=== PATIENT | male | born 1930 | race Hispanic/Latino ===

== ENCOUNTER 2017-02-10 10:18 | Inpatient (IN) | payer MEDICARE, MEDICAID ==
--- NOTE | 2017-02-10 10:35 | ED PDOC ---
Arrival/HPI - General Chief Complaint: Shortness Of Breath Time Seen by Provider: 02/10/17 10:19 Historian: Patient, Family (2 daughters translate) EM Caveat: Acuity of Condition - History of Present Illness Time/Duration: Other (Last night) Symptom Onset: Gradual Symptom Course: Worsening Severity Level: Moderate Activities at Onset: Rest Associated Symptoms (Text): 02/10/17 10:33 Daughters translating reports shortness of breath beginning last night and worsening overnight. No chest pain. He was treated by medics with nitroglycerin and Lasix IV. There is a very mild nonproductive chronic cough. No dizziness or lightheadedness. Some diaphoresis. No nausea or vomiting. History of a CABG and pacemaker. Past Medical History - Infectious Disease Hx of Infectious Diseases: None - Cardiac Hx Cardiac Disorders: Yes (cad, open heart at [facility] 5 yrs ago) Hx Hypertension: Yes - Pulmonary Hx Chronic Obstructive Pulmonary Disease (COPD): Yes - HEENT Hx HEENT Disorder: No - Renal Hx Renal Disorder: No - Endocrine/Metabolic Hx Endocrine Disorders: (thyroid nodule removed over 15 yrs ago) - Hematological/Oncological Hx Cancer: Yes (basal cell nose removed) - Integumentary Hx Basal Cell Carcinoma: Yes (nose) Other/Comment: multiple brown discolorations to both lower legs, daughter does not know the cause was seen by dr has had them many years - Musculoskeletal/Rheumatological Hx Falls: No - Gastrointestinal Hx Gastrointestinal Disorders: No - Genitourinary/Gynecological Hx Genitourinary Disorders: No - Psychiatric Hx Depression: No Hx Emotional Abuse: No Hx Physical Abuse: No Hx Substance Use: No - Surgical History Hx Open Heart Surgery: Yes - Anesthesia Hx Anesthesia Reactions: No - Suicidal Assessment Feels Threatened In Home Enviroment: No Family/Social History - Physician Review Nursing Documentation Reviewed: Yes Family/Social History: Unknown Family HX Smoking Status: Former Smoker (Quit smoking 9 years ago) Hx Alcohol Use: Yes (social) Frequency of alcohol use: Socially Hx Substance Use: No Allergies/Home Meds Allergies/Adverse Reactions: Allergies No Known Allergies Allergy (Verified 07/24/15 21:15) Home Medications: Home Meds Medication Instructions Recorded Confirmed Fluticasone/Salmeterol [Advair 1 puff IH DAILY 07/22/12 02/10/17 Diskus 250/50] Aspirin [Aspirin EC] 325 mg PO DAILY 02/10/17 02/10/17 Levalbuterol HCl [Xopenex] 0 mg IH PRN PRN 02/10/17 02/10/17 Metoprolol Tartrate [Lopressor] 25 mg PO DAILY 02/10/17 02/10/17 Umeclidinium [place] [Incruse 0 mcg IH DAILY 02/10/17 02/10/17 Ellipta] Review of Systems - Review of Systems Systems not reviewed;Unavailable: Acuity of Condition Physical Exam Vital Signs Temp Pulse Resp BP Pulse Ox 02/10/17 10:48 100.8 F H 02/10/17 10:38 115/59 L 02/10/17 10:30 98.1 F 80 23 115/59 L 91 L 02/10/17 10:27 26 H Temperature: Afebrile Blood Pressure: Normal Pulse: Regular Respiratory Rate: Tachypneic Appearance: Positive for: Well-Appearing, Non-Toxic, Uncomfortable Pain Distress: None Mental Status: Positive for: Alert and Oriented X 3 - Systems Exam Head: Present: Atraumatic, Normocephalic Pupils: Present: PERRL Extroacular Muscles: Present: EOMI Conjunctiva: Present: Normal Mouth: Present: Moist Mucous Membranes Pharnyx: No: ERYTHEMA, EXUDATE, TONSILS ENLARGED Neck: Present: Normal Range of Motion Respiratory/Chest: Present: Respiratory Distress, Accessory Muscle Use, Decreased Breath Sounds, Rales, Retracting, Rhonchi, Tachypneic. No: Tender to Palpation Cardiovascular: Present: Regular Rate and Rhythm, Normal S1, S2. No: Murmurs Abdomen: Present: Normal Bowel Sounds. No: Tenderness, Distention, Peritoneal Signs, Rebound, Guarding Upper Extremity: Present: Normal Inspection. No: Cyanosis, Edema Lower Extremity: Present: Normal Inspection. No: Edema, Swelling Neurological: Present: GCS=15, CN II-XII Intact, Speech Normal Skin: Present: Warm, Dry, Normal Color. No: Rashes Psychiatric: Present: Alert Medical Decision Making ED Course and Treatment: 02/10/17 10:36 EKG is pacing rate approximately 65 02/10/17 10:55 is here seeing the patient now. 02/10/17 11:28 was unable to get into the patient's chart to place orders, and he asked me to daria, herlinda and césar for him which I have done. - Lab Interpretations Lab Results: 02/10/17 10:50 02/10/17 10:50 Lab Results 02/10/17 10:55: Urine Color yellow, Urine Appearance Clear, Urine pH 6.5, Ur Specific Cameron 1.015, Urine Protein Negative, Urine Glucose (UA) Negative, Urine Ketones Negative, Urine Blood Small H, Urine Nitrate Negative, Urine Bilirubin Negative, Urine Urobilinogen 1.0 H, Ur Leukocyte Esterase Negative, Urine RBC 10 - 15, Urine WBC 2 - 5, Ur Epithelial Cells 4 - 5 02/10/17 10:50: Sodium 137, Potassium 4.3, Chloride 101, Carbon Dioxide 26, Anion Gap 14, BUN 21, Creatinine 0.9, Est GFR ( Amer) > 60, Est GFR (Non- Af Amer) > 60, Random Glucose 111 H, Calcium 9.0, Total Bilirubin 2.2 H, AST 25 , ALT 22, Alkaline Phosphatase 101, Lactate Dehydrogenase 299 L, Total Creatine Kinase 42, Troponin I < 0.01 D, NT-Pro-B Natriuret Pep 4320 H, Total Protein 7.2, Albumin 3.8, Globulin 3.4, Albumin/Globulin Ratio 1.1 02/10/17 10:50: WBC 8.6 D, RBC 4.56, Hgb 15.4, Hct 45.5, MCV 99.8, MCH 33.8, MCHC 33.8, RDW 14.4, Plt Count 244, MPV 9.1, Gran % 64.5, Lymph % (Auto) 29.9, Lasalle % (Auto) 5.4, Eos % (Auto) 0.1 L, Baso % (Auto) 0.1, Gran # 5.52, Lymph # 2.6, Lasalle # 0.5, Eos # 0.0, Baso # 0.01 02/10/17 10:35: pCO2 31 L, pO2 63.0 L, HCO3 22.0, ABG pH 7.46 H, ABG Total CO2 23.0, ABG O2 Saturation 94.1 L, ABG O2 Content 18.3, ABG Base Excess -0.9, ABG Hemoglobin 14.0, ABG Carboxyhemoglobin 1.3, POC ABG HHb (Measured) 5.8 H, ABG Methemoglobin 0.1, ABG O2 Capacity 19.4, Hgb O2 Saturation 92.8 L, FiO2 40.0 - RAD Interpretation Radiology Orders: 02/10/17 10:28 CHEST PORTABLE [RAD] Stat Chest 1 view shows borderline cardiomegaly with hardware and a pacemaker present. No infiltrate. Bilateral increased markings consistent with CHF. 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: ED Physician - Medication Orders Current Medication Orders: Arformoterol Tartrate (Brovana) 15 mcg IH [id number] CHUCHO Tiotropium [place] (Spiriva) 18 mcg IH DAILY CHUCHO Discontinued Medications Budesonide (Pulmicort Respules) 0.5 mg IH STAT STA Stop: 02/10/17 11:27 Furosemide (Lasix) 40 mg IVP STAT STA Stop: 02/10/17 10:28 Last Admin: 02/10/17 10:38 Dose: 40 mg Nitroglycerin (Nitro-Bid 2% Oint) 1 ea TOP STAT STA Stop: 02/10/17 10:41 Disposition/Present on Arrival - Present on Arrival Any Indicators Present on Arrival: No History of DVT/PE: No History of Uncontrolled Diabetes: No Urinary Catheter: No History of Decub. Ulcer: No History Surgical Site Infection Following: None - Disposition Have Diagnosis and Disposition been Completed?: Yes Diagnosis: Congestive heart failure Disposition: HOSPITALIZED Disposition Time: 11:40 Patient Plan: Admission, Telemetry Condition: SERIOUS Discharge Instructions (ExitCare): Heart Failure (ED)
[2017-02-10 10:39] LABS: ARTERIAL BLOOD GAS O2 CAPACITY 19.4 mL/dl (16-24); ARTERIAL BLOOD GAS O2 CONTENT 18.3 ML/dl (15-23); ARTERIAL BLOOD GAS PH 7.46 (7.35-7.45); ARTERIAL BLOOD HGB O2 SAT 92.8 % (95.0-98.0); CARBOXYHEMOGLOBIN 1.3 % (0.5-1.5); HHB 5.8 % (0-5); METHEMOGLOBIN 0.1 % (0.0-3.0)
[2017-02-10] MEDS ORDERED: Nitroglycerin 2% Ointment Foilpak UD TOP STA (10:40)
[2017-02-10 10:51] LABS: ADD MANUAL DIFF? NO
[2017-02-10 10:55] LABS: BASO # 0.01 K/mm3 (0.0-2.0); BASO % 0.1 % (0.0-3.0); EOS % 0.1 % (1.5-5.0); GRAN # 5.52 (1.4-6.5); GRAN % 64.5 % (50.0-68.0); HEMATOCRIT 45.5 % (42.0-52.0); LYMPH # 2.6 (1.2-3.4); LYMPH % 29.9 % (22.0-35.0); MEAN CELL VOLUME 99.8 fL (80.0-105.0); MEAN CORPUSCULAR HEMOGLOBIN 33.8 pg (25.0-35.0); MEAN CORPUSCULAR HGB CONC 33.8 g/dl (31.0-37.0); MEAN PLATELET VOLUME 9.1 fl (7.0-11.0); MONO # 0.5 (0.1-0.6); MONO % 5.4 % (1.0-6.0); PLATELET COUNT 244 10^3/uL (120.0-450.0); RED CELL DISTRIBUTION WIDTH 14.4 % (11.5-14.5); WHITE BLOOD COUNT 8.6 10^3/ul (4.5-11.0)
[2017-02-10 11:01] LABS: PH,URINE 6.5 (4.7-8.0); URINE BILIRUBIN NEGATIVE (NEGATIVE); URINE BLOOD SMALL (NEGATIVE); URINE GLUCOSE (UA) NEGATIVE (NEGATIVE); URINE KETONE NEGATIVE (NEGATIVE); URINE LEUKOCYTE ESTERASE NEGATIVE Leu/uL (NEGATIVE); URINE PROTEIN NEGATIVE mg/dL (<30 mg/dL)
[2017-02-10 11:06] LABS: ALB/GLOB RATIO 1.1 (1.1-1.8); ALKALINE PHOSPHATASE 101 U/L (38-133); ALT/SGPT 22 U/L (7-56); AST/SGOT 25 U/L (15-59); BILIRUBIN,TOTAL 2.2 mg/dL (0.2-1.3); BLOOD UREA NITROGEN 21 mg/dL (7-21); CARBON DIOXIDE 26 mmol/L (21-33); CHLORIDE 101 mmol/L (98-107); GFR AFRICAN-AMERICAN > 60; GLUCOSE,RANDOM 111 mg/dL (70-110); INR 1.09 (0.93-1.08); POTASSIUM 4.3 mmol/L (3.6-5.0); SODIUM 137 mmol/L (132-148); TOTAL PROTEIN 7.2 g/dL (5.8-8.3)
[2017-02-10 11:15] LABS: URINE APPEARANCE CLEAR (CLEAR)
[2017-02-10 11:26] LABS: TROPONIN I < 0.01 ng/mL
[2017-02-10] MEDS ORDERED: Budesonide 0.5 mg/2 ml Inhal Susp UD IH STA (11:26)
--- NOTE | 2017-02-10 12:33 | RAD ---
HISTORY: Shortness of breath. COMPARISON: 09/01/2016. FINDINGS: LUNGS: Small left pleural effusion. PLEURA: No significant pleural effusion identified, no pneumothorax apparent. CARDIOVASCULAR: Cardiomegaly, mild CHF. Position/ configuration of pacemaker device: Satisfactory. OSSEOUS STRUCTURES: No significant abnormalities. VISUALIZED UPPER ABDOMEN: Normal. OTHER FINDINGS: None. IMPRESSION: Cardiomegaly/pulmonary vascular congestion, acute.
[2017-02-10 12:42] VITALS: BMI 28.3
--- NOTE | 2017-02-10 13:02 | CON ---
DATE: 02/10/2017 HISTORY OF PRESENT ILLNESS: For computer reasons, I have been unable to be entered into this patient's chart and do not have access to any of the medical records or to write orders. I have seen the patient in the Emergency Room and discussed the case with the patient's daughters. I have discussed the patient's symptoms with him privately. The patient has been my patient for many years with chronic obstructive pulmonary disease. His outpatient medications include Advair, INCRUSE and Xopenex p.r.n. as a rescue inhaler. He is on home oxygen. He also takes aspirin and metoprolol from his membership manager. Of late, the patient has progressive shortness of breath unrelated to his respiratory status. He has been referred to cardiology and an outpatient workup has been started; still pending are an echocardiogram and thallium stress test. He has not yet been treated for pulmonary vascular congestion, although the symptoms were present in my office: the reason for sending him to cardiology several weeks ago. The patient and his daughters state that during the night and starting yesterday afternoon, the patient had progressive shortness of breath. He had a gurgling sound from his mouth. This was not associated with any chest pain. There was edema of the lower extremities and the gurgling sound as described above. He was taking his medication and supplemental oxygen to no avail. The patient was just seen in the Emergency Room with one of his daughters. I have spoken to his other daughter on the telephone at this time. The patient states that his symptoms began yesterday as described above and have progressed to the point that he wanted to come to the Emergency Room for further help. The oxygen has not helped, nor the inhalation treatments and he actually suspected cardiac disease as this has been recent change in his status. There was no fever, chills, cough or expectoration. There was edema of the lower extremities and gurgling sounds from his mouth. HOME MEDICATIONS: Include Advair 250/50, INCRUSE 1 inhalation daily, Xopenex HFA 1-2 puffs up to twice daily as a rescue inhaler if needed. In addition to this, he has been taking aspirin and metoprolol daily. ALLERGIES: There are no known allergies. FAMILY HISTORY: Coronary artery disease, chronic respiratory disease, diabetes mellitus. SOCIAL HISTORY: Former smoker REVIEW OF SYSTEMS: Complete review of systems has been discussed with the patient's daughter, there are no additional abnormalities that need to be added at this time. He is resting but very uncomfortable. All other systems negative. PHYSICAL EXAMINATION: VITAL SIGNS lymph nodes are stable with a blood pressure 140/70, heart rate is 92 and blood pressure 140/92, oxygen sat 92% on supplemental oxygen. GENERAL: The patient looks like usual, but he is clearly with respiratory distress. NECK: Supple. There is no lymphadenopathy. There is minor jugular venous distention on exam. HEENT: Normocephalic, atraumatic. Eyes: PERRLA. EOMs full. HEART: Tachycardia, gallop appreciated, soft systolic ejection murmur. CHEST: Scattered rales throughout both lung bahena, prolonged expiratory phase , no wheezing appreciated. Some rhonchi noted as well. ABDOMEN: Soft, bowel sounds normoactive without mass, guarding, rebound or organomegaly. EXTREMITIES: Reveal no clubbing or cyanosis. There is 1-2+ edema of the lower extremities. There is no Homans sign. NEUROLOGIC: Awake, alert, oriented. Mental status normal, no focal findings. Deep tendon reflexes normal. Babinski is downgoing. LYMPHATICS: Lymphadenopathy is not present. Supraclavicular area as well as the cervical, axillary and supraclavicular notch appear free of lymph nodes. SKIN: No rashes LABORATORY STUDIES: Chest x-ray shows pulmonary vascular congestion with Frances B lines encephalization of the vessels, there is significant hyperinflation consistent with COPD as well and cardiomegaly. No additional testing is done as of this time. There is no EKG or blood work done. CLINICAL IMPRESSION: 1. Progressive onset of shortness of breath. 2. Development of edema and gurgling. 3. Pulmonary vascular congestion/congestive heart failure. 4. 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 PLAN: The patient will require cardiology evaluation EL. He is seen by Dr. Harrison. He needs vigorous diuretic therapy as well as afterload reduction. We would continue his inhaled bronchodilators via hand nebulizer and Spiriva hand held. We will follow closely with you. Unfortunately, I cannot make any orders for this gentleman because I cannot enter the computer. I will discuss my suggestions with the ER physician and nurse and make sure that the orders get in the computer, assuring that the membership manager see the patient EL. Will also discuss with the patient's PMD, Dr. Shiva Angulo. Lester Chávez MD cc: [id number] TT: 02/10/2017 13:00:48 Confirmation # [id number] Dictation # [id number] jn MARGARETTE
--- NOTE | 2017-02-10 18:16 | CON ---
DATE: 02/10/2017 Cardiology consultation (for Dr. Harrison). HISTORY OF PRESENT ILLNESS: The patient is an 86-year-old male who presents with 1 week of progressi ve shortness of breath. He was seen in Dr. Harrison's office earlier this month and was ordered multiple tests including an echocardiogram that was done in their office. He was scheduled for stress test b ut never did the test yet. PAST MEDICAL HISTORY: Is notable for a pacemaker placement. In addition, the patient is status post coronary artery bypass surgery. His past medical history is also notable for a stress test that showed good LV function. Negative diabetes mellitus noted. SOCIAL HISTORY: Negative smoker. REVIEW OF SYSTEMS: No angina noted. Negative edema noted. Positive shortness of breath over 1 week . PHYSICAL EXAMINATION: VITAL SIGNS: Blood pressure varies from 138-178, heart rate is in the 60s and paced rhythm. NECK: Negative JVD. LUNGS: Rales bilaterally. HEART: Revealed S1, S2. EXTREMITIES: Without edema. EKG shows a paced rhythm. LABORATORIES: Hemoglobin is 15.4. Chemistries: Troponins negative x 1. The proBNP is 4320. Gluco se 111. IMPRESSION: 1. Acute systolic congestive heart failure. 2. History of bypass surgery. 3. No evidence for acute coronary syndrome. 4. History of pacemaker placement. 5. Dyspnea, which is better after IV Lasix. Given these findings, will increase his Lasix to 40 b.i.d. Will not order an echocardiogram since one was done in Dr. Harrison's office recently. Will defer care t o Dr. Harrison in the morning. Angel Leon MD cc: [id number] TT: 02/10/2017 18:15:42 Confirmation # [id number] Dictation # [id number] dn
[2017-02-10] MEDS ORDERED: Arformoterol 15 mcg/2 ml Inh Sol IH SCH (20:00)
[2017-02-10] MEDS: Arformoterol 15 mcg/2 ml Inh Sol IH SCH (21:17)
[2017-02-11] MEDS ORDERED: Levalbuterol 0.63 MG/3 ML Inhal Soln UD IH PRN (07:11)
[2017-02-11 07:21] LABS: ADD MANUAL DIFF? NO
[2017-02-11 07:36] LABS: BASO # 0.02 K/mm3 (0.0-2.0); BASO % 0.2 % (0.0-3.0); EOS % 0.3 % (1.5-5.0); GRAN # 5.55 (1.4-6.5); GRAN % 62.1 % (50.0-68.0); HEMATOCRIT 44.5 % (42.0-52.0); LYMPH # 2.7 (1.2-3.4); LYMPH % 30.6 % (22.0-35.0); MEAN CELL VOLUME 99.1 fL (80.0-105.0); MEAN CORPUSCULAR HEMOGLOBIN 33.6 pg (25.0-35.0); MEAN CORPUSCULAR HGB CONC 33.9 g/dl (31.0-37.0); MEAN PLATELET VOLUME 9.1 fl (7.0-11.0); MONO # 0.6 (0.1-0.6); MONO % 6.8 % (1.0-6.0); PLATELET COUNT 229 10^3/uL (120.0-450.0); RED CELL DISTRIBUTION WIDTH 14.3 % (11.5-14.5)
[2017-02-11 07:44] LABS: ALB/GLOB RATIO 1.2 (1.1-1.8); ALKALINE PHOSPHATASE 101 U/L (38-133); ALT/SGPT 35 U/L (7-56); AST/SGOT 27 U/L (15-59); BILIRUBIN,TOTAL 2.6 mg/dL (0.2-1.3); BLOOD UREA NITROGEN 30 mg/dL (7-21); CALCIUM 8.8 mg/dL (8.4-10.5); CARBON DIOXIDE 29 mmol/L (21-33); CHLORIDE 97 mmol/L (95-110); GFR AFRICAN-AMERICAN > 60; GLUCOSE,RANDOM 116 mg/dL (70-110); POTASSIUM 3.9 mmol/L (3.6-5.0); SODIUM 135 mmol/L (132-148); TOTAL PROTEIN 7.5 g/dL (5.8-8.3)
[2017-02-11] MEDS: Arformoterol 15 mcg/2 ml Inh Sol IH SCH ×2 (08:54→19:15)
[2017-02-11] MEDS: Levalbuterol 0.63 MG/3 ML Inhal Soln UD IH SCH ×3 (08:54→19:15)
[2017-02-11] MEDS: Budesonide 0.5 mg/2 ml Inhal Susp UD IH SCH ×2 (08:54→19:15)
--- NOTE | 2017-02-11 09:16 | CARD ---
APPROVED REPORT EKG Measurement Heart [id number] VT P55 [id number] <Conclusion> Electronic ventricular pacemaker: 100% V. Paced No change
[2017-02-11] MEDS: Enoxaparin 40 mg Syringe SC SCH (09:49)
[2017-02-11] MEDS: Tiotropium 18 mcg Cap For Inhalation IH SCH (09:49)
--- NOTE | 2017-02-11 10:25 | PN ---
DATE: 02/11/2017 SUBJECTIVE: The patient appears comfortable at rest. He is not short of breath. PHYSICAL EXAMINATION: VITAL SIGNS: Temperature is 98.3, pulse 60, respirations 18, blood pressure 114 /56. Oxygen saturation on nasal cannula is 94%. HEENT: Normocephalic, atraumatic. No JVD. CARDIOVASCULAR: Systolic ejection murmur at the lower left sternal border. Positive S3 gallop. LUNGS: Crackles at the bases. Minimal bilateral rhonchi. No wheezing. EXTREMITIES: Mild edema. No cyanosis. No clubbing. Calves are nontender to palpation. GASTROINTESTINAL: Abdomen is soft, nontender, nondistended. Bowel sounds are positive. SKIN: No acute rash. NEUROLOGIC: Limited at the present time. IMPRESSION: 1. Acute congestive heart failure. 2. Coronary artery disease. 3. Chronic obstructive pulmonary disease. 4. Mild bronchitis. 5. Permanent pacemaker. PLAN: The patient appears comfortable this morning. He is not short of breath at rest. I did discuss the case with the daughter -- at bedside -- at length. She states that her father -- the patient -- is doing better since his admission to the hospital. On physical exam, there is mild bronchospasm noted. I will continue with the Brovana for now. I will also add a short acting beta agonist and inhaled Pulmicort this morning. The patient is also on Spiriva. I would continue with the treatment for congestive heart failure as per cardiology. Input by Dr. Leon is noted. The patient remains on Lasix/ afterload reduction. I have also ordered the patient out of bed this morning with assistance. Repeat a.m. labs are pending. Clinical status of the patient is improved -- compared to the initial presentation. I will discuss the above with the attending physician this morning. Riley Fu MD cc: [id number] TT: 02/11/2017 10:24:49 Confirmation # [id number] Dictation # [id number] en MTDD
--- NOTE | 2017-02-11 13:04 | HP ---
HISTORY OF PRESENT ILLNESS: The patient is an 86-year-old man with a past medical history of COPD, h ypertension and CAD status post CABG who presented to [facility] Emergency Department wit h progressively worsening dyspnea, initially with exertion, which progressed to dyspnea at rest. The patient is closely followed by Dr. Chávez of pulmonary and critical care medicine for his underl melissa COPD and was recently referred to Dr. Harrison of cardiology for continued workup of his exertional dyspnea, given that the etiology was not felt to be secondary to his underlying COPD. The patient di d have an evaluation with Dr. Harrison and underwent an echocardiogram, and arrangements were made [facility] a nuclear stress test; however, this was yet to be completed. Given the progression of the patient's symptoms, his daughter has opted for evaluation in the Emergency Department. This morning he reported that for approximately 1-2 weeks he has been experiencing dyspnea with exertion, which h as been progressing over time to the point where he was dyspneic at rest. He denied chest pain or pa lpitations associated with his symptoms and furthermore denied any fevers, chills, cough, hemoptysis or lower extremity edema. He did, however, report, 2 pillow orthopnea which he states is new. Upon arrival to the Emergency Department, he was noted to be afebrile and hemodynamically stable, but tach ypneic with a respiratory rate of 26 and hypoxic with an oxygen saturation of 90% on room air. The p atient received multiple rounds of bronchodilator treatments and was placed on supplemental oxygen wi th minimal improvement in his symptoms. A chest x-ray which was obtained in the Emergency Department demonstrated cardiomegaly with pulmonary vascular congestion in a CHF pattern and, thus, the patient was started on intravenous Lasix and subsequently admitted to the telemetry gallardo for continued manag ement of acute systolic heart failure exacerbation. This morning on examination, the patient states he feels significantly improved since admission and reports frequent urination, and otherwise offers no complaints. PAST MEDICAL HISTORY: As per HPI. Also, history of benign thyroid nodule, status post removal 15 ye ars ago and removal of basal cell carcinoma from the nose. PAST SURGICAL HISTORY: As per HPI. ALLERGIES: No known drug allergies. MEDICATIONS: Advair 250/50 one puff b.i.d., Incruse 1 inhalation daily, Xopenex HFA 1-2 puffs b.i.d. , aspirin 81 mg p.o. daily and metoprolol 25 mg p.o. daily. FAMILY HISTORY: Significant for COPD, CAD, hypertension and type 2 diabetes mellitus. SOCIAL HISTORY: The patient reports a former [id number] smoking history, but quit several years ag o. He reports social alcohol use and denies illicit drug abuse. REVIEW OF SYSTEMS: Significant for exertional dyspnea, dyspnea at rest and 2 pillow orthopnea. Nega tive for fevers, chills, rigors, palpitations, chest pain, paroxysmal nocturnal dyspnea or claudicati on. PHYSICAL EXAMINATION: VITAL SIGNS: Temperature 98.3, pulse 60, blood pressure 114/56, respiratory rate 18, oxygen saturati on 94% on 2 liters nasal cannula. GENERAL: Elderly man appearing his stated age, in no apparent distress. HEENT: Normocephalic, atraumatic. PERRL, EOMI, no scleral icterus, no conjunctival pallor. NECK: Supple with full range of motion. No JVD, no bruits. LUNGS: A few scattered rhonchi with decreased breath sounds to the bases. CARDIOVASCULAR: Regular rate and rhythm. Normal S1 and S2. Grade II/ systolic ejection murmur to left lower sternal border. ABDOMEN: Soft, normoactive bowel sounds, nondistended, nontender. EXTREMITIES: Trace lower extremity edema bilaterally. NEUROLOGIC: Awake, alert and oriented x 3. No focal motor deficits. LABORATORY DATA: WBC 9 with 62% neutrophils, hemoglobin 15, hematocrit 44, platelets 229. Sodium 13 5, potassium 3.9, chloride 97, bicarb 29, BUN 30, creatinine 1.1, glucose 116. AST 27, ALT 35. Trop onin negative x 2. BNP 4320. IMAGING STUDIES: Chest x-ray demonstrates cardiomegaly with pulmonary vascular congestion in a CHF p attern and satisfactory position of pacemaker. ASSESSMENT: The patient is an 86-year-old male with a past medical history of chronic obstructive pu lmonary disease/emphysema, hypertension and coronary artery disease status post coronary artery bypas s graft, who presented to the Emergency Department with a 1-week history of progressively worsening d yspnea, 2 pillow orthopnea, and lower extremity edema and who was admitted to the telemetry gallardo for management of acute systolic heart failure exacerbation. PLAN: 1. Acute systolic heart failure exacerbation. Input from Dr. Leon of cardiology noted and appreciat ed. Dr. Harrison of cardiology will resume care starting today. The patient remains afebrile, hemodynam ically stable and chest pain free and cardiac enzymes are negative x 2. The patient is also diuresed satisfactorily since admission with approximately 1.9 liters of urine output with significant improv ement in his respiratory status. Will continue with Lasix 40 mg IV q. 12 hours at present, but will need to monitor his renal function and electrolytes closely for concern for over diuresis. 2. CAD, status post CABG. As above, evaluation is pending with Dr. Harrison. The patient was scheduled to undergo a nuclear stress test on an outpatient basis and will need to discuss the timing of this exam given his recent admission. Continue with Coreg 12.5 mg p.o. b.i.d. and aspirin 81 mg p.o. mehrdad y. 3. Hypertension. Blood pressure controlled. Continue with current medications. 4. COPD/emphysema. Input from Dr. Chávez noted and greatly appreciated. Continue with suppleme ntal oxygen, bronchodilators and inhaled corticosteroids as needed. 5. Prophylaxis. GI prophylaxis not indicated as patient is eating. Continue with Lovenox 40 mg SC daily for DVT prophylaxis. CODE STATUS: Full code. Shiva Angulo MD cc: [phone] TT: 02/11/2017 13:03:29 ga
--- NOTE | 2017-02-11 14:26 | IP.NPCORE ---
Heart Failure Core Measure - Heart Failure Ejection Fraction: 40 % or Greater ASHLIE Inhibitor Prescribed: Yes Beta-Emerson Prescribed: Carvedilol, Metoprolol Succinate AnticoagulationTherapy for Atrial Fibrillation/Atrialflutter: No Contraindication/Reason for not providing: n/a Aldosterone Antagonist Prescribed: No Contraindication/Reason for not providing: renal insuff, on lasix Hydralazine Nitrate Prescribed: No Contraindication/Reason for not providing: ef >40% last echo Implantable Cardioverter Defibrillator Therapy: Yes Cardiac Resynchronization Therapy Prescribed: Yes - Follow up Will be discharged to: Home Follow Up Date (must be within 7 days from discharge): 02/18/17 (recommended at mo) Follow Up Time: 09:00
[2017-02-12] MEDS ORDERED: Levalbuterol 1.25 MG/3 ML Inhal Soln UD IH STA (00:21)
[2017-02-12 06:25] LABS: ADD MANUAL DIFF? NO
[2017-02-12 06:31] LABS: BASO # 0.01 K/mm3 (0.0-2.0); BASO % 0.1 % (0.0-3.0); EOS % 0.4 % (1.5-5.0); GRAN # 4.85 (1.4-6.5); GRAN % 60.2 % (50.0-68.0); HEMATOCRIT 41.8 % (42.0-52.0); LYMPH # 2.6 (1.2-3.4); LYMPH % 32.3 % (22.0-35.0); MEAN CELL VOLUME 98.1 fL (80.0-105.0); MEAN CORPUSCULAR HEMOGLOBIN 33.6 pg (25.0-35.0); MEAN CORPUSCULAR HGB CONC 34.2 g/dl (31.0-37.0); MEAN PLATELET VOLUME 8.9 fl (7.0-11.0); MONO # 0.6 (0.1-0.6); PLATELET COUNT 215 10^3/uL (120.0-450.0); RED CELL DISTRIBUTION WIDTH 14.2 % (11.5-14.5); WHITE BLOOD COUNT 8.1 10^3/ul (4.5-11.0)
[2017-02-12 06:52] LABS: ALB/GLOB RATIO 1.1 (1.1-1.8); ALKALINE PHOSPHATASE 98 U/L (38-133); ALT/SGPT 21 U/L (7-56); AST/SGOT 27 U/L (15-59); BILIRUBIN,TOTAL 1.8 mg/dL (0.2-1.3); BLOOD UREA NITROGEN 40 mg/dL (7-21); CALCIUM 8.6 mg/dL (8.4-10.5); CARBON DIOXIDE 30 mmol/L (21-33); CHLORIDE 94 mmol/L (98-107); GFR AFRICAN-AMERICAN > 60; GLUCOSE,RANDOM 108 mg/dL (70-110); POTASSIUM 3.6 mmol/L (3.6-5.0); SODIUM 133 mmol/L (132-148); TOTAL PROTEIN 7.1 g/dL (5.8-8.3)
[2017-02-12 07:04] VITALS: O2SAT 90
--- NOTE | 2017-02-12 08:09 | PN ---
DATE: 02/11/2017 REASON FOR CONSULTATION AND FOLLOWUP: Coronary artery disease, CABG, admitted with acute decompensat ed congestive heart failure, acute on chronic systolic dysfunction. BRIEF CLINICAL HISTORY: This is an 86-year-old male with a past medical history significant for omaira nary artery disease, status post CABG 08/2008 when the patient had a cardiac catheterization because of abnormal stress test that shows left main 80%-90% stenosis, LAD 30%, circumflex 90% stenosis, unde rwent cardiac catheterization, underwent CABG. The patient was recently seen in office, was stable. Admitted here with shortness of breath, history of severe PAD in the past. PAST MEDICAL HISTORY: Significant for coronary artery disease, CABG 2007 as mentioned. The patient underwent quadruple bypass. Since then, remained stable. The patient's last stress test 12/22/2014 s hows ejection fraction 59%, fixed defect, no reversible ischemia. The patient had last echocardiogra phy done in the hospital 07/25/2015, shows ejection fraction 55%-60%, mild aortic stenosis, mild aort ic sclerosis versus aortic stenosis, trace to mild mitral regurgitation, mild regurgitation. R ecently, patient was seen in office complaining of shortness of breath, so patient was scheduled for echo that shows ejection fraction 30%-35%, mild aortic stenosis, mild tricuspid regurgitation, RV sys tolic pressure 38, inferior apical hypokinesis noted. The patient was scheduled for a stress test in end of January, but admitted here yesterday with decompensated congestive heart failure. History of pe rmanent pacemaker when patient presented with a complete heart block dated 07/27/2015. SOCIAL HISTORY: Denies smoking. Denies any history of alcohol abuse. REVIEW OF SYSTEMS: As per HPI. PHYSICAL EXAMINATION: VITAL SIGNS: Temperature afebrile, heart rate , blood pressure 101/51. HEENT: PERRLA. Extraocular muscles intact. NECK: Supple. No carotid bruits. No thyromegaly. CHEST: Clear to auscultation. HEART: S1, S2 regular. ABDOMEN: Soft. EXTREMITIES: Clubbing, cyanosis negative. BLOOD WORKUP: WBC 9, hemoglobin 15. , hematocrit 44.5, platelet count 229. Chemistry shows sodi um , potassium 3.9, chloride 97, carbon dioxide , anion gap of 13, BUN 30, creatinine 1.1. Troponin 0.01. IMPRESSION: Decompensated congestive heart failure, acute on chronic systolic dysfunction, most rece ntly echo shows ejection fraction 35% on last in Dr. Chaidez's office, mild aortic , mil d tricuspid regurgitation, right ventricular systolic pressure 38, coronary artery disease, coronary artery bypass graft in the past, quadruple bypass 2007, history of 08/2008, history of permanent pace maker on 07/27/2015 when patient admitted with a complete heart block, history of peripheral arterial disease, seen by Dr. Paulino and decided to be treated medically. Decompensated congestive heart f ailure, acute on chronic systolic dysfunction, diabetes, hypertension, hyperlipidemia, severe periphe ral arterial disease, coronary artery bypass graft. RECOMMENDATION: Continue IV Lasix. Continue aspirin, continue Coreg, continue deep venous thrombosi s prophylaxis. Will get a stress test in the morning. Thank you, Dr. Shiva Angulo, for providing us the opportunity in taking care of the patient. The patient had a recent echo done in Dr. Chaidez's office. We will cancel the stress test. Thank you, Dr. Shiva Angulo, for providing us the opportunity in taking care of the patient. We will do a stress test tomorrow. Keep n.p.o. after midnight for a stress in the morning. Vasu Harrison MD cc: [id number] TT: 02/11/2017 16:57:22 Confirmation # [id number] Dictation # [id number] en
[2017-02-12] MEDS: Arformoterol 15 mcg/2 ml Inh Sol IH SCH ×2 (09:06→19:47)
[2017-02-12] MEDS: Levalbuterol 0.63 MG/3 ML Inhal Soln UD IH SCH ×3 (09:07→19:47)
[2017-02-12] MEDS: Budesonide 0.5 mg/2 ml Inhal Susp UD IH SCH ×2 (09:07→19:47)
--- NOTE | 2017-02-12 09:45 | PN ---
DATE: 02/12/2017 PULMONARY NOTE SUBJECTIVE: The patient appears very comfortable this morning. He is not short of breath at rest. PHYSICAL EXAMINATION: VITAL SIGNS: Temperature is 98.4, pulse 60, respirations 18, blood pressure 108 /58. Oxygen saturation on nasal cannula is 92%. HEENT: Normocephalic, atraumatic. No JVD. CARDIOVASCULAR: Systolic ejection murmur at the lower left sternal border. Positive S3 gallop. LUNGS: Crackles at the bases. Much less rhonchi. No wheezing. EXTREMITIES: Mild edema. No cyanosis, no clubbing. Calves are nontender to palpation. GASTROINTESTINAL: Abdomen is soft, nontender, nondistended. Bowel sounds are positive. SKIN: No acute rash. NEUROLOGIC: Limited at the present time. IMPRESSION: 1. Acute congestive heart failure. 2. Coronary artery disease. 3. Chronic obstructive pulmonary disease. 4. Mild bronchitis. 5. Permanent pacemaker. PLAN: The patient appears very comfortable this morning. He is not short of breath at rest. I did discuss the case with the daughter at length. She is at bedside. She also feels that his shortness of breath is resolving. On physical exam, there is certainly less bronchospasm noted. I will continue with the current nebulizer treatments and inhaled steroids for now. I would continue with the cardiology evaluation. Input by Dr. Leon is noted. The patient is for stress testing later today. Clinical status of the patient is certainly improved - compared to the initial presentation. Repeat chest x-ray is ordered for today. I will check that when feasible. I will discuss the above with the attending physician. Riley Fu MD cc: [id number] TT: 02/12/2017 09:44:30 Confirmation # [id number] Dictation # [id number] jn MARGARETTE
[2017-02-12] MEDS ORDERED: Aminophylline 25 mg/ml Inj ONE (10:16)
--- NOTE | 2017-02-12 10:41 | PN ---
DATE: 02/12/2017 SUBJECTIVE: The patient seen and examined at bedside on the telemetry gallardo. No acute events overnig ht. He remains afebrile and hemodynamically stable. The patient reports significant continued impro vement in his respiratory status and also reports significant diuresis since admission. He is down 1 1 pounds since admission and has voided over 2 L of urine in the last 24 hours. This morning, the darren arevalo has a nuclear stress test pending as ongoing workup of his exertional dyspnea. Otherwise, he s tates he feels well and offers no complaints. OBJECTIVE: VITAL SIGNS: Temperature 97.9, pulse 61, blood pressure 117/63, respiratory rate 18, oxygen saturati on 94% on 2 L nasal cannula. GENERAL: Elderly man appearing his stated age, lying in bed in no apparent distress. HEENT: PERRL. EOMI. No scleral icterus. No conjunctival pallor. NECK: Supple with full range of motion, no JVD, no bruits. LUNGS: Faint scattered rhonchi with few expiratory wheeze and decreased breath sounds to the bases. CARDIOVASCULAR: Regular rate and rhythm, normal S1 and S2, grade II/ systolic ejection murmur at t he left lower sternal border. ABDOMEN: Normoactive bowel sounds, soft, nontender, nondistended. EXTREMITIES: No edema. NEUROLOGIC: Awake, alert and oriented x 3. No focal motor deficits. LABORATORY DATA: CBC reviewed and unremarkable. Sodium 133, potassium 3.6, chloride 94, bicarb 30, BUN 40, creatinine 1, glucose 108. ASSESSMENT: The patient is an 86-year-old man with past medical history of chronic obstructive pulmo nary disease/emphysema, hypertension and coronary artery disease, status post coronary artery bypass graft, who presented to the Emergency Department with a 1-week history of progressively worsening dys pnea, 2 pillow orthopnea, and lower extremity edema and who was admitted to the telemetry gallardo for wa jenniffer of acute systolic heart failure exacerbation, who is now clinically improved. PLAN: 1. Acute systolic heart failure exacerbation, resolved. Input from Dr. Harrison of cardiology noted and greatly appreciated. The patient has lost 11 pounds since admission and has diuresed a further 2 L in the last 24 hours. Given increasing renal dysfunction, we will lower Lasix to 40 mg IV daily. Co ntinue with supplemental oxygen as needed. 2. CAD, status post CABG. The patient is pending nuclear stress test with Dr. Harrison this morning. C ontinue with aspirin 81 mg p.o. daily and Coreg 12.5 mg p.o. b.i.d. 3. Hypertension. Blood pressure controlled. Continue with current medications. 4. COPD/emphysema. Input from Dr. Fu noted and appreciated. Continue with current therapy as per Dr. Fu. 5. Prophylaxis. GI prophylaxis not indicated as the patient is eating. Continue with Lovenox 40 mg SC daily for DVT prophylaxis. CODE STATUS: Full code. Shiva Angulo MD cc: [id number] TT: 02/12/2017 10:40:17 Confirmation # [id number] Dictation # [id number] il
--- NOTE | 2017-02-12 11:14 | PN ---
DATE: 02/12/2017 REASON FOR CONSULTATION: Coronary artery disease, CABG, admitted with acute decompensated congestive heart failure, acute on chronic systolic dysfunction. BRIEF CLINICAL HISTORY: An 86-year-old male with past medical history significant for coronary arter y disease, status post coronary artery bypass graft in 08/2008, recently seen in the office, history of PAD, family opted for medical treatment, admitted with acute decompensated congestive heart failur e. The patient had recently an echo in Dr. Chaidez's office, ejection fraction 30%-35%, mild aortic s tenosis, mild tricuspid regurgitation, right ventricular systolic pressure 78, inferior apical hypoki nesis noted. The patient is scheduled for a stress test as outpatient, but because of symptomology, is scheduled for a stress test today. Family is at the bedside. History of permanent pacemaker when patient was in complete heart block 07/27/2015. PHYSICAL EXAMINATION: VITAL SIGNS: Temperature afebrile, heart rate 61, blood pressure 117/63. HEENT: PERRLA. Extraocular muscles intact. NECK: Supple. No carotid bruits. No thyromegaly. No JVD. CHEST: Clear to auscultation. HEART: S1, S2 regular. ABDOMEN: Soft. EXTREMITIES: Clubbing and cyanosis negative. LABORATORY DATA: Blood workup as follows: WBC ____, hemoglobin ____, hematocrit 41.8, platelet coun t 215. Chemistry shows sodium ____, potassium 3.6, chloride 94, carbon dioxide 30, anion gap of 13, BUN 40, creatinine 1.0. Total bilirubin 1.8. IMPRESSION: Acute decompensated congestive heart failure. No evidence of acute coronary syndrome. Troponin remained 0.1, 0.2, 0.2. No evidence of acute coronary syndrome. Unstable angina. No evide nce of acute coronary syndrome or unstable angina. Diabetes, hyperlipidemia, coronary artery disease , coronary artery bypass graft, cardiomyopathy, acute on chronic systolic dysfunction, rule out ische juan jose, rule out occlusion of the graft, history of sick sinus syndrome, status post complete heart bloc k, status post permanent pacemaker, history of peripheral arterial disease, family opted for medical treatment. RECOMMENDATION: We will get a stress test today. After stress test, possible discharge home, but wi ll change Lasix to p.o. from tomorrow. Discussed with the daughter. Discussed with Dr. Shiva vargas. I am going on conference tomorrow ____ patient will be followed with Dr. Mai if needed, otherwise the patient will be discharged and follow the stress test as outpatient. Discussed with ___ _. Thank you, Dr. Angulo, for providing the opportunity in taking care of this patient. Vasu Harrison MD cc: [id number] TT: 02/12/2017 11:13:09 Confirmation # [id number] Dictation # [id number] rn
[2017-02-12] MEDS: Tiotropium 18 mcg Cap For Inhalation IH SCH (12:12)
[2017-02-12] MEDS: Enoxaparin 40 mg Syringe SC SCH (12:14)
--- NOTE | 2017-02-12 14:11 | CARD ---
APPROVED REPORT Protocol: LEXISCAN Test Type: Lexiscan Sestamibi Stress Test Attending Physician: Dr. Shiva Angulo Referring Physician: Dr. Vasu Harrison Test Indications: Chest Pain Height:5 ft 2 in Weight:148lbs Medications: Brovana, Aspirin, Pulmicort, Coreg, Lovenox, Lasix, Xopenex, Spiriva Medical History: 86 y/o male with a history of htn, diabetes, COPD, CHF, s/p CABG and pacemaker insertion Target HR: 133 bpm Resting ECG: V paced rythm Resting Heart Rate: 63 bpm Resting Blood Pressure: 136/70mmHg Submaximum (85%): 113 bpm PROCEDURE Pharmacologic stress testing was performed using 0.4mg per 5ml of regadenoson given intravenously over 7-10 seconds. Reversal agent aminophyline 100 mg, given intravenously for Dyspnea. POST EXERCISE Reason for Termination: Protocol completed Target HR: No Max HR: 62 bpm 52% of Maximum Predicted HR: 133 bpm Exercise duration: 00:36 min:sec, 0 Stage Exercise capacity: 1.0METs Max Blood Pressure: 136/70mmHg Blood Pressure response to exercise: normal resting BP - appropriate response Heart Rate response to exercise: appropriate Chest Pain: No, none Angina index: 0 Arrhythmia: No, none ST Change: Yes, Non from base line Deviation: 0 mm TEST SUMMARY [id number]/.0. [id number]/70.0. INFUSIONDOSE 100:360.00.01.062/.0. [id number]/60.0. INTERPRETATION Stress EKG Conclusion: Non diagnostic IV lexiscan for ischemia B/c of V paced rythm, Nuclear scan to follow. Signed by Shiva Angulo Electronically Approved: 02/12/2017 11:33:38 EXAM: Myocardial Perfusion REST/STRESS Stress Test Type: Pharmacologic Imaging Protocol Rest Spect myocardial perfusion imaging was performed in supine position 45 minutes following the injection of 10.3 mCi of Tc-99 Myoview. At peak stress, the patient was injected intravenously with 30.7mCi of Tc-99 tetrofosmin after an infusion time of 0 minutes and 10 seconds. Gated Stress Spect was performed 65 minutes after intravenous Tc-99 Myoview injection. The images were gated to evaluate regional wall motion and calculate ventricular ejection fraction.Images were reconstructed using backfilter projection method in short horizontal and verticle long axis. Spect slices were generated. LV Perfusion The quality of the study is good. The left ventricle is within normal limits in size. The right ventricle is prominent. The lung uptake is borderline increased. The distribution of tracer reveal an area of severely decreased perfusion involving apical, distal inferior/ inferoseptal maravilla on the stress study. The remainder of the LV myocardium is unremarkable. The rest myocardial perfusion study shows no significant improvement of the defects. Wall Motion Wall motion study shows anteroseptal dyskinesis of the left ventricle. LVEF = 59%. Conclusion 1. Abnormal SPECT myocardial perfusion study. 2. Fixed, apical and distal inferior/ inferoseptal defects are suggestive of myocardial injury/infarct. 3. Moderate overall LV dysfunction despite anteroseptal dyskinesis. 4. In comparison with the last study of 12/22/2014, the perfusion defects appear more prominent in the current study.
--- NOTE | 2017-02-12 14:31 | RAD ---
HISTORY: F/U CHF COMPARISON: 09/01/2016. TECHNIQUE: Chest PA and lateral FINDINGS: LUNGS: The lungs are hyperinflated and there is peribronchial thickening with chronic changes in both lungs. There is mild pulmonary venous congestion. There is linear atelectasis/ scarring in the left lower lobe. No lobar pneumonia. PLEURA: No significant pleural effusion identified. No pneumothorax apparent. CARDIOVASCULAR: The heart is normal in size. Status post CABG. There is stable position of a left-sided unipolar permanent pacing device. OSSEOUS STRUCTURES: No significant abnormalities. VISUALIZED UPPER ABDOMEN: Normal. OTHER FINDINGS: None. IMPRESSION: Mild pulmonary venous congestion. COPD.
--- NOTE | 2017-02-12 22:38 | CARD ---
APPROVED REPORT EKG Measurement Heart [id number] <Conclusion> Electronic ventricular pacemaker
[2017-02-13] MEDS: Levalbuterol 0.63 MG/3 ML Inhal Soln UD IH SCH ×2 (02:28→07:59)
[2017-02-13 04:49] VITALS: RESP 22; TEMP 98.5
[2017-02-13 07:40] LABS: ADD MANUAL DIFF? NO
[2017-02-13 07:47] LABS: BASO # 0.01 K/mm3 (0.0-2.0); BASO % 0.1 % (0.0-3.0); GRAN # 5.58 (1.4-6.5); GRAN % 66.1 % (50.0-68.0); HEMATOCRIT 42.1 % (42.0-52.0); LYMPH # 2.2 (1.2-3.4); LYMPH % 25.5 % (22.0-35.0); MEAN CELL VOLUME 97.2 fL (80.0-105.0); MEAN CORPUSCULAR HEMOGLOBIN 33.5 pg (25.0-35.0); MEAN CORPUSCULAR HGB CONC 34.4 g/dl (31.0-37.0); MEAN PLATELET VOLUME 9.2 fl (7.0-11.0); MONO # 0.7 (0.1-0.6); MONO % 8.3 % (1.0-6.0); PLATELET COUNT 245 10^3/uL (120.0-450.0); RED CELL DISTRIBUTION WIDTH 13.8 % (11.5-14.5); WHITE BLOOD COUNT 8.4 10^3/ul (4.5-11.0)
[2017-02-13 07:57] LABS: ALB/GLOB RATIO 1.1 (1.1-1.8); ALKALINE PHOSPHATASE 109 U/L (38-133); ALT/SGPT 22 U/L (7-56); AST/SGOT 28 U/L (15-59); BILIRUBIN,TOTAL 2.2 mg/dL (0.2-1.3); BLOOD UREA NITROGEN 49 mg/dL (7-21); CALCIUM 8.5 mg/dL (8.4-10.5); CARBON DIOXIDE 31 mmol/L (21-33); CHLORIDE 91 mmol/L (95-110); GFR AFRICAN-AMERICAN > 60; GLUCOSE,RANDOM 118 mg/dL (70-110); POTASSIUM 3.7 mmol/L (3.6-5.0); SODIUM 129 mmol/L (132-148); TOTAL PROTEIN 7.1 g/dL (5.8-8.3)
[2017-02-13] MEDS: Arformoterol 15 mcg/2 ml Inh Sol IH SCH (07:58)
[2017-02-13] MEDS: Budesonide 0.5 mg/2 ml Inhal Susp UD IH SCH (07:59)
--- NOTE | 2017-02-13 08:13 | PN ---
DATE: 02/13/2017 SUBJECTIVE: The patient appears comfortable this morning. He is not short of breath at rest. OBJECTIVE: VITAL SIGNS: Temperature is 98.5, pulse 60, respirations 18/20, blood pressure 138/69. Oxygen saturation on nasal cannula is 90%. HEENT: Normocephalic, atraumatic. No JVD. CARDIOVASCULAR: Systolic ejection murmur at the lower left sternal border. Positive S3 gallop. LUNGS: Less crackles at the bases. Minimal/less rhonchi. No wheezing. EXTREMITIES: Mild edema. No cyanosis, no clubbing. Calves are nontender to palpation. GASTROINTESTINAL: Abdomen is soft, nontender, nondistended. Bowel sounds are positive. SKIN: No acute rash. NEUROLOGIC: Limited at the present time. PERTINENT LABORATORY DATA: Chest x-ray was done yesterday and reviewed. Compared to the film of 02/10/2017 - yesterday's film is improved with decreased pulmonary vascular congestive changes. IMPRESSION: 1. Acute congestive heart failure. 2. Coronary artery disease. 3. Chronic obstructive pulmonary disease. 4. Mild bronchitis. 5. Permanent pacemaker. PLAN: The patient appears comfortable this morning. He is not short of breath at rest. He does state to feeling better overall. I did discuss the case with the daughter - at bedside - again this morning. On physical exam, his bronchospasm is certainly less. I will continue with the current nebulizer treatments and inhaled steroids for now. The patient also remains on Lasix therapy - as per Dr. Harrison (cardiology). As above, yesterday's x-ray is certainly improved - compared to the original film. The patient is doing well overall and remains clinically improved. I will discuss the above with Dr. Angulo. Riley Fu MD cc: [id number] TT: 02/13/2017 08:12:29 Confirmation # [id number] Dictation # [id number] mn MARGARETTE
--- NOTE | 2017-02-13 08:38 | PN ---
DATE: 02/13/2017 SUBJECTIVE: The patient seen and examined at bedside on the telemetry gallardo. No acute events overnight. He remains afebrile and hemodynamically stable. The patient is status post a nuclear stress test yesterday which demonstrated multiple abnormalities as compared to his previous study and arrangements will be made for further evaluation with cardiac catheterization. Otherwise he states he feels great and denies chest pain, palpitations, orthopnea or dyspnea and reports that he would like to go home. OBJECTIVE: VITAL SIGNS: Temperature 98.5, pulse 60, blood pressure 138/69, respiratory rate 22, oxygen saturation 90% on 3 liters nasal cannula. GENERAL: Elderly man appearing his stated age, in no apparent distress. HEENT: PERRL. EOMI. No scleral icterus. No conjunctival pallor. NECK: Supple, with full range of motion. No JVD, no bruits. LUNGS: Bibasilar crackles with few scattered rhonchi. CARDIOVASCULAR: Regular rate and rhythm, normal S1, S2. Grade II/ systolic ejection murmur at left lower sternal border. ABDOMEN: Normoactive bowel sounds, soft, nontender, nondistended. EXTREMITIES: No edema. NEUROLOGIC: Awake, alert and oriented x 3. No focal motor deficits. LABORATORY DATA: CBC reviewed and unremarkable. Sodium 129, potassium 3.7, chloride 91, bicarb 31, BUN 49, creatinine 1.2, glucose 118. ASSESSMENT: The patient is an 86-year-old man with past medical history of chronic obstructive pulmonary disease/emphysema, hypertension and coronary artery disease s/p CABG who presents to [facility] with a 1-week history of progressively worsening dyspnea, 2-pillow orthopnea and lower extremity edema and who was admitted to the telemetry gallardo for management of acute systolic heart failure exacerbation. PLAN: 1. Acute systolic heart failure exacerbation, resolved. Input from Dr. Harrison of cardiology noted and greatly appreciated. The patient is diuresed satisfactorily since admission. Intravenous Lasix has been discontinued and the patient has been started on Lasix 40 mg p.o. b.i.d. 2. Coronary artery disease, status post coronary artery bypass graft. The patient is status post nuclear stress test which demonstrated fixed apical and distal inferior/inferoseptal defect suggestive of myocardial injury, which are more prominent than his previous study in 12/2014. As above, arrangements will be made for further evaluation with cardiac catheterization. In the interim, the patient will continue with aspirin 81 mg p.o. daily and Lopressor 25 mg p.o. b.i.d. 3. Hypertension. Blood pressure controlled. Continue with current medications. 4. Chronic obstructive pulmonary disease/emphysema. Input from Dr. Fu noted and appreciated. Continue with current care as per Dr. Fu. 5. Prophylaxis. GI prophylaxis not indicated as the patient is eating. Continue with Lovenox 40 mg SC daily for DVT prophylaxis. CODE STATUS: Full code. Shiva Angulo MD cc: [id number] TT: 02/13/2017 08:38:12 Confirmation # [id number] Dictation # [id number] mn MTDD
[2017-02-13] MEDS: Tiotropium 18 mcg Cap For Inhalation IH SCH (09:32)
[2017-02-13] MEDS: Enoxaparin 40 mg Syringe SC SCH (09:32)
[2017-02-13 09:34] VITALS: BP 115/68; PULSE 64
--- NOTE | 2017-02-14 21:34 | DS ---
ADMITTING DIAGNOSIS: Acute systolic heart failure exacerbation, new onset. DISCHARGE DIAGNOSIS: Acute systolic heart failure exacerbation. SECONDARY DIAGNOSES: Chronic obstructive pulmonary disease/emphysema, coronary artery disease status post coronary artery bypass graft, hypertension. CONSULTATIONS: Dr. Harrison (cardiology), Dr. Chávez (pulmonary and critical care medicine). IMAGING STUDIES: Chest x-ray, which demonstrated cardiomegaly with pulmonary venous congestion in a CHF pattern. PROCEDURES: Myocardial nuclear stress test which demonstrated an abnormal fixed apical and distal in ferior/anteroseptal defect suggestive of myocardial injury with moderate LV dysfunction with an EF of 59%, which in comparison to the last study in 12/2014 the defects appear more prominent. HISTORY OF PRESENT ILLNESS: The patient is an 86-year-old male with past medical history of chronic obstructive pulmonary disease, hypertension, and CAD status post coronary artery bypass graft, who pr esented to [facility] Emergency Department with progressively worsening dyspnea, initiall y with exertion which progressed to dyspnea at rest. The patient was closely followed by Dr. Mehran velez of pulmonary and critical care medicine for his underlying COPD and was recently referred to Dr. Harrison of cardiology for continued workup of his exertional dyspnea. The etiology was not felt to be s econdary to his underlying COPD. The patient did have an evaluation with Dr. Harrison and underwent an e chocardiogram and arrangements were subsequently made to schedule for nuclear stress test which was y et to be completed. Given the progression of his symptoms, his daughter opted for evaluation in the Emergency Department. On the morning of presentation to the Emergency Department, he reported a 1-2 week history of increasing dyspnea with exertion, which progressed over time to dyspnea at rest. He denied chest pain or palpitations associated with his symptoms and further denied fevers, chills, rig ors, cough, hemoptysis or lower extremity edema. Upon arrival to the ED, he was noted to be afebrile and hemodynamically stable, but tachypneic with a respiratory rate of 26 and hypoxic with an oxygen saturation of 90% on room air. He received multiple rounds of bronchodilator treatments. He was wisam carmen on supplemental oxygen with minimal improvement in his respiratory status. He was subsequently s tarted on IV Lasix after a chest x-ray demonstrated acute pulmonary venous congestion in a CHF patter n and admitted to the telemetry gallardo for continued management of acute systolic heart failure exacerb ation. HOSPITAL COURSE: Upon admission to the telemetry gallardo, the patient was evaluated by Dr. Kyler javier f pulmonary and critical care medicine and Dr. Harrison of cardiology. The patient was maintained on his pulmonary regimen and also started on Lasix 40 mg IV q. 12 for diuresis. Over the following 36 hour s, the patient diuresed satisfactorily and was noted to have an 11 pound weight loss since admission. His pulmonary symptoms significantly improved. He was also taken to the nuclear lab to undergo a m yocardial perfusion study, which demonstrated the aforementioned abnormalities. Given the progressio n of his underlying cardiac disease as compared to his prior study, [facility] further evaluation of his new onset heart failure as well as ongoing dyspnea with exertion. By hospital day #3, the patient appeared to be at his baseline respiratory status an d was deemed stable for discharge to home. CONDITION: Fair, improved. DISPOSITION: To home. DISCHARGE MEDICATIONS: Lasix 40 mg p.o. b.i.d., Advair 250/50 one puff q. 12 hours, INCRUSE Ellipta 1 puff b.i.d., Xopenex 1 puff q. 6 hours p.r.n. wheeze, aspirin 81 mg p.o. daily and Lopressor 25 mg p.o. b.i.d. DISCHARGE INSTRUCTIONS: The patient was advised that if he has any recurrence of his symptoms to pre sent to the nearest Emergency Department or to his PMD immediately. FOLLOWUP: The patient to follow up with his PMD within 1 week of discharge. The patient to follow u p with Dr. Chávez as scheduled. The patient to follow up with Dr. Harrison as scheduled. Shiva Angulo MD cc: [phone] TT: 02/14/2017 21:33:45 jn
== END 2017-02-13 10:23 | disposition home or self-care (01) | DRG 293 ==
LOC: ED 10:18 → ERH 11:56 → 2RSO 13:16
PROVIDERS: ADMIT Student in an Organized Health Care Education/Training Program; ATTEND Student in an Organized Health Care Education/Training Program
DX: I11.0 Hypertensive heart disease with heart failure (principal); Z99.81 Dependence on supplemental oxygen; I42.9 Cardiomyopathy, unspecified; I50.23 Acute on chronic systolic (congestive) heart failure; J44.9 Chronic obstructive pulmonary disease, unspecified; E11.9 Type 2 diabetes mellitus without complications; I25.110 Atherosclerotic heart disease of native coronary artery with unstable angina pectoris; E78.5 Hyperlipidemia, unspecified; I73.9 Peripheral vascular disease, unspecified; R09.02 Hypoxemia; I08.3 Combined rheumatic disorders of mitral, aortic and tricuspid valves; Z79.51 Long term (current) use of inhaled steroids; Z79.82 Long term (current) use of aspirin; Z79.899 Other long term (current) drug therapy; Z82.49 Family history of ischemic heart disease and other diseases of the circulatory system; Z82.5 Family history of asthma and other chronic lower respiratory diseases; Z83.3 Family history of diabetes mellitus; Z85.828 Personal history of other malignant neoplasm of skin; Z87.891 Personal history of nicotine dependence; Z95.0 Presence of cardiac pacemaker; Z95.1 Presence of aortocoronary bypass graft; R40.2412 Glasgow coma scale score 13-15, at arrival to emergency department

== ENCOUNTER 2017-02-14 20:55 | Inpatient (IN) | payer MEDICARE, MEDICAID ==
[2017-02-14 20:57] VITALS: BMI 24.6
[2017-02-14] MEDS ORDERED: Levalbuterol 1.25 MG/3 ML Inhal Soln UD IH STA ×2 (21:14→21:15)
[2017-02-14] MEDS ORDERED: Ipratropium 0.02% Inhal Soln (0.5 mg/2.5 ml) UD IH STA (21:14)
--- NOTE | 2017-02-14 21:22 | ED PDOC ---
Arrival/HPI - General Chief Complaint: Chest Pain Time Seen by Provider: 02/14/17 20:57 Historian: Patient - History of Present Illness Narrative History of Present Illness (Text): 02/14/17 21:00 Bharagv Harman is an 86 year old male, whose past medical history includes CAD/CABG with a pacemaker and COPD, who has recently been hospitalized and discharged for shortness of breath. Patient had a stress test done on 02/12 which was abnormal and suggestive of ischemia, patient is awaiting appointment of outpatient cardiac catheterization. Patient presents to the emergency department with recurrence of shortness of breath, chest pain, a mild cough, and dyspnea on exertion today. Per family, patient felt warm at home and oral temp was 99.1. Patient's family states that patient is maintained on oxygen via nasal cannula at home and takes Lasix twice a day. Patient denies any fever , abdominal pain, nausea, vomiting, diarrhea, leg swelling, or any other complaint at this time. PMD: Dr. Gem Haque Time/Duration: 1-3 hours Symptom Onset: Gradual Symptom Course: Unchanged Severity Level: Mild Activities at Onset: Rest Context: Home Past Medical History - Provider Review Nursing Documentation Reviewed: Yes - Infectious Disease Hx of Infectious Diseases: None - Cardiac Hx Cardiac Disorders: Yes (cad, open heart at [facility] 5 yrs ago) Hx Hypertension: Yes - Pulmonary Hx Chronic Obstructive Pulmonary Disease (COPD): Yes - HEENT Hx HEENT Disorder: No - Renal Hx Renal Disorder: No - Endocrine/Metabolic Hx Endocrine Disorders: (thyroid nodule removed over 15 yrs ago) - Hematological/Oncological Hx Cancer: Yes (basal cell nose removed) - Integumentary Hx Basal Cell Carcinoma: Yes (nose) Other/Comment: multiple brown discolorations to both lower legs, daughter does not know the cause was seen by dr has had them many years - Musculoskeletal/Rheumatological Hx Falls: No - Gastrointestinal Hx Gastrointestinal Disorders: No - Genitourinary/Gynecological Hx Genitourinary Disorders: No - Psychiatric Hx Depression: No Hx Emotional Abuse: No Hx Physical Abuse: No Hx Substance Use: No - Surgical History Hx Open Heart Surgery: Yes - Anesthesia Hx Anesthesia Reactions: No - Suicidal Assessment Feels Threatened In Home Enviroment: No Family/Social History - Physician Review Nursing Documentation Reviewed: Yes Family/Social History: No Known Family HX Smoking Status: Never Smoked Hx Alcohol Use: Yes (social) Hx Substance Use: No Allergies/Home Meds Allergies/Adverse Reactions: Allergies No Known Allergies Allergy (Verified 07/24/15 21:15) Home Medications: Home Meds Medication Instructions Recorded Confirmed Fluticasone/Salmeterol [Advair 1 puff IH DAILY 07/22/12 02/10/17 250-50 Diskus] Aspirin [Aspirin EC] 325 mg PO DAILY 02/10/17 02/10/17 Levalbuterol HCl [Xopenex] 0 mg IH PRN PRN 02/10/17 02/10/17 Metoprolol Tartrate [Lopressor] 25 mg PO DAILY 02/10/17 02/10/17 Umeclidinium [place] [Incruse 0 mcg IH DAILY 02/10/17 02/10/17 Ellipta] Furosemide [Lasix] 40 mg PO BID 02/13/17 02/13/17 Review of Systems - Physician Review All systems were reviewed & negative as marked: Yes - Review of Systems Constitutional: absent: Fevers, Night Sweats Eyes: absent: Vision Changes ENT: absent: Hearing Changes Respiratory: SOB, Cough Cardiovascular: Chest Pain Gastrointestinal: absent: Abdominal Pain Genitourinary Male: absent: Dysuria, Urinary Output Changes Musculoskeletal: absent: Arthralgias, Neck Pain Skin: absent: Rash Neurological: absent: Headache, Dizziness Endocrine: absent: Diaphoresis Hemo/Lymphatic: absent: Adenopathy Psychiatric: absent: Anxiety Physical Exam Vital Signs Reviewed: Yes Vital Signs Temp Pulse Resp BP Pulse Ox 02/14/17 23:10 100.0 F H 72 30 H 123/71 88 L 02/14/17 21:52 114/53 L 02/14/17 21:09 98.2 F 67 28 H 149/73 87 L Temperature: Afebrile Blood Pressure: Normal Pulse: Regular Respiratory Rate: Tachypneic Appearance: Positive for: Well-Appearing, Non-Toxic, Comfortable Pain Distress: None Mental Status: Positive for: Alert and Oriented X 3 - Systems Exam Head: Present: Atraumatic, Normocephalic Pupils: Present: PERRL Conjunctiva: Present: Normal Mouth: Present: Moist Mucous Membranes Pharnyx: Present: Normal. No: ERYTHEMA, EXUDATE Neck: Present: Normal Range of Motion. No: JVD Respiratory/Chest: Present: Decreased Breath Sounds (with fine crackles at the bases), Tachypneic, Other (Positive Orthopnea) Cardiovascular: Present: Regular Rate and Rhythm, Murmurs, Normal S1, S2 Abdomen: Present: Normal Bowel Sounds. No: Tenderness, Distention, Peritoneal Signs Upper Extremity: Present: Normal Inspection. No: Cyanosis, Edema Lower Extremity: Present: Normal Inspection. No: Edema Neurological: Present: GCS=15, CN II-XII Intact, Speech Normal Skin: Present: Warm, Dry, Normal Color. No: Rashes Psychiatric: Present: Alert, Oriented x 3, Normal Insight, Normal Concentration Medical Decision Making ED Course and Treatment: 02/14/17 21:00 Impression: 86 year old male complaining of shortness of breath, chest pain, a mild cough, and dyspnea on exertion today. Differential Diagnosis included but are not limited to: ACS vs. CHF vs. COPD vs. pneumonia Plan: -- EKG -- Chest x-ray -- Urinalysis -- Labs -- Aspirin, Lasix, Atrovent, Xopenex, and Solu-medrol -- Reassess and disposition Prior Visits: Notes and results from previous visits were reviewed. Patient last seen in the ED on 02/10/17 for worsening shortness of breath since the night before arrival. Patient was admitted to Telemetry for further evaluation. Progress Notes: 02/14/17 21:27 Reviewed radiology, Chest X-ray shows bilateral pulmonary vascular congestion. 02/15/17 00:53 Patient's CXR showing PVC with likely LLL infiltrate developing. Temp is 100.0 rectally. Labs with no leukocytosis but mild neutrophilia. Patient is hypoxic on 3L NC and will definitely need admission for nebs, iv antibiotics, and steroids. Will need re-evaluation by pulmonary and cardiology. Case discussed with Dr. Shiva Angulo for admission to his service. - Lab Interpretations Lab Results: 02/14/17 21:45 02/14/17 21:45 Lab Results 02/14/17 22:00: NT-Pro-B Natriuret Pep 5770 H 02/14/17 21:45: Sodium 129 L, Potassium 4.4, Chloride 89 L, Carbon Dioxide 31, Anion Gap 13, BUN 60 H, Creatinine 1.1, Est GFR ( Amer) > 60, Est GFR ( Non-Af Amer) > 60, Random Glucose 147 H, Calcium 8.8, Magnesium 2.1, Total Bilirubin 1.6 H, AST 43, ALT 20, Alkaline Phosphatase 144 H, Lactate Dehydrogenase 400, Total Creatine Kinase 87, Troponin I 0.03 D, Total Protein 7.8, Albumin 3.9, Globulin 3.8, Albumin/Globulin Ratio 1.0 L, Lipase 27 02/14/17 21:45: PT 12.0 H, INR 1.11 H, APTT 30.1 02/14/17 21:45: WBC 9.5, RBC 4.44, Hgb 15.0, Hct 43.2, MCV 97.3, MCH 33.8, MCHC 34.7, RDW 13.8, Plt Count 313, MPV 9.7, Gran % 73.0 H, Lymph % (Auto) 17.1 L, Ross % (Auto) 9.8 H, Eos % (Auto) 0.0 L, Baso % (Auto) 0.1, Gran # 6.90 H, Lymph # 1.6, Ross # 0.9 H, Eos # 0.0, Baso # 0.01 02/14/17 21:30: Urine Color Yellow, Urine Appearance Clear, Urine pH 6.0, Ur Specific [place] 1.015, Urine Protein Negative, Urine Glucose (UA) Negative, Urine Ketones Negative, Urine Blood Trace-intact H, Urine Nitrate Negative, Urine Bilirubin Negative, Urine Urobilinogen 2.0 H, Ur Leukocyte Esterase Negative, Urine RBC 0 - 2, Urine WBC 2 - 5, Ur Epithelial Cells 1 - 3, Urine Bacteria Mod I have reviewed the lab results: Yes - RAD Interpretation Radiology Orders: 02/14/17 21:13 CHEST PORTABLE [RAD] Stat - Medication Orders Current Medication Orders: Vancomycin HCl (Vancomycin 1gm) 1 gm in 250 mls @ 133.333 mls/hr IVPB STAT STA PRN Reason: Protocol Stop: 02/15/17 01:21 Discontinued Medications Aspirin (Aspirin Chewable) 324 mg PO STAT STA Stop: 02/14/17 21:16 Last Admin: 02/14/17 21:53 Dose: Furosemide (Lasix) 40 mg IVP STAT STA Stop: 02/14/17 21:15 Last Admin: 02/14/17 21:52 Dose: 40 mg Cefepime HCl (Maxipime 1gm) 1 gm in 100 mls @ 100 mls/hr IVPB STAT STA PRN Reason: Protocol Stop: 02/15/17 00:31 Last Admin: 02/15/17 00:09 Dose: 100 mls/hr Ipratropium [place] (Atrovent) 0.5 mg IH STAT STA Stop: 02/14/17 21:15 Last Admin: 02/14/17 21:52 Dose: 0.5 mg Levalbuterol HCl (Xopenex) 1.25 mg IH STAT STA Stop: 02/14/17 21:15 Last Admin: 02/14/17 21:52 Dose: 1.25 mg Levalbuterol HCl (Xopenex) 1.25 mg IH STAT STA Stop: 02/14/17 21:16 Last Admin: 02/14/17 21:52 Dose: 1.25 mg Methylprednisolone (Solu-Medrol) 125 mg IVP STAT STA Stop: 02/14/17 21:15 Last Admin: 02/14/17 21:52 Dose: 125 mg - Scribe Statement The provider has reviewed the documentation as recorded by the Jaelyn Hale Provider Scribe Attestation: All medical record entries made by the Jaelyn were at my direction and personally dictated by me. I have reviewed the chart and agree that the record accurately reflects my personal performance of the history, physical exam, medical decision making, and the department course for this patient. I have also personally directed, reviewed, and agree with the discharge instructions and disposition. Disposition/Present on Arrival - Present on Arrival Any Indicators Present on Arrival: No History of DVT/PE: No History of Uncontrolled Diabetes: No Urinary Catheter: No History of Decub. Ulcer: No History Surgical Site Infection Following: None - Disposition Have Diagnosis and Disposition been Completed?: Yes Diagnosis: Chest pain, Pneumonia, Congestive heart failure Disposition: HOSPITALIZED Disposition Time: 23:15 Patient Plan: Admission, Telemetry Condition: FAIR
[2017-02-14 21:54] LABS: ADD MANUAL DIFF? NO
[2017-02-14 21:59] LABS: BASO # 0.01 K/mm3 (0.0-2.0); BASO % 0.1 % (0.0-3.0); HEMATOCRIT 43.2 % (42.0-52.0); LYMPH # 1.6 (1.2-3.4); LYMPH % 17.1 % (22.0-35.0); MEAN CELL VOLUME 97.3 fL (80.0-105.0); MEAN CORPUSCULAR HEMOGLOBIN 33.8 pg (25.0-35.0); MEAN CORPUSCULAR HGB CONC 34.7 g/dl (31.0-37.0); MEAN PLATELET VOLUME 9.7 fl (7.0-11.0); MONO # 0.9 (0.1-0.6); MONO % 9.8 % (1.0-6.0); PLATELET COUNT 313 10^3/uL (120.0-450.0); RED CELL DISTRIBUTION WIDTH 13.8 % (11.5-14.5); WHITE BLOOD COUNT 9.5 10^3/ul (4.5-11.0)
[2017-02-14 22:09] LABS: ALKALINE PHOSPHATASE 144 U/L (38-133); ALT/SGPT 20 U/L (7-56); AST/SGOT 43 U/L (15-59); BILIRUBIN,TOTAL 1.6 mg/dL (0.2-1.3); BLOOD UREA NITROGEN 60 mg/dL (7-21); CALCIUM 8.8 mg/dL (8.4-10.5); CARBON DIOXIDE 31 mmol/L (21-33); CHLORIDE 89 mmol/L (98-107); GFR AFRICAN-AMERICAN > 60; GLUCOSE,RANDOM 147 mg/dL (70-110); LIPASE 27 U/L (23-300); MAGNESIUM 2.1 mg/dL (1.7-2.2); POTASSIUM 4.4 mmol/L (3.6-5.0); SODIUM 129 mmol/L (132-148); TOTAL PROTEIN 7.8 g/dL (5.8-8.3)
[2017-02-14 22:10] LABS: INR 1.11 (0.93-1.08); PARTIAL THROMBOPLASTIN TIME 30.1 Seconds (23.7-30.8)
[2017-02-14 22:12] LABS: URINE BILIRUBIN NEGATIVE (NEGATIVE); URINE BLOOD TRACE-INTACT (NEGATIVE); URINE GLUCOSE (UA) NEGATIVE (NEGATIVE); URINE KETONE NEGATIVE (NEGATIVE); URINE LEUKOCYTE ESTERASE NEGATIVE Leu/uL (NEGATIVE); URINE PROTEIN NEGATIVE mg/dL (<30 mg/dL)
[2017-02-14 22:18] LABS: URINE APPEARANCE CLEAR (CLEAR); URINE COLOR YELLOW (YELLOW)
[2017-02-14 22:20] LABS: TROPONIN I 0.03 ng/mL
[2017-02-14 22:30] LABS: URINE BACTERIA MOD (NEG); URINE RBC 0 - 2 /hpf (0-2)
[2017-02-14] MEDS ORDERED: Vancomycin 1gm in NS 250ml 1 GM/250 ML BAG IVPB STA (23:29)
[2017-02-14] MEDS ORDERED: Cefepime 1gm in NS 100ml 1 GM/100 ML BAG IVPB STA (23:32)
[2017-02-15 01:55] LABS: ARTERIAL BLOOD GAS HCO3 30.6 mmol/L (21-28); ARTERIAL BLOOD GAS PH 7.47 (7.35-7.45)
[2017-02-15] MEDS ORDERED: Levalbuterol 0.63 MG/3 ML Inhal Soln UD IH PRN (06:50)
[2017-02-15] MEDS: Budesonide 0.5 mg/2 ml Inhal Susp UD IH SCH ×2 (07:47→20:20)
[2017-02-15] MEDS: Levalbuterol 0.63 MG/3 ML Inhal Soln UD IH SCH ×3 (07:47→20:20)
[2017-02-15 07:57] LABS: TROPONIN I 0.01 ng/mL
--- NOTE | 2017-02-15 08:52 | CON ---
DATE: 02/15/2017 REASON FOR CONSULTATION: Shortness of breath. REFERRING PHYSICIAN: Dr. Shiva Angulo. History is obtained via extensive discussion with the night nurse. I have also discussed the case with the son-in-law -- at bedside -- at length. I have also reviewed the chart at length. HISTORY OF PRESENT ILLNESS: The patient is an 86-year-old male, with past medical history significant for recent congestive heart failure, coronary artery disease, status post coronary bypass graft surgery, permanent pacemaker, recent abnormal stress test, chronic obstructive pulmonary disease, who presents back to the hospital with shortness of breath at rest, dyspnea on exertion, and cough. There is no history of sputum production. There is a history of chest pain yesterday. There is no chest pain today. No history of coughing up of blood. No history of chest pain -- made worse with deep respirations. I also reviewed the Emergency Room notes. In Dr. Curran's note, he states that there was a temperature of 100.0 rectally. This finding is not documented in the vital signs. No history of chills or infectious exposure. No history of night sweats, weight loss or appetite change prior to the above events. No history of leg or calf pains. No history of syncope or diaphoresis. No history of recent travel or trauma. REVIEW OF SYSTEMS: No history of nausea, vomiting or diarrhea. No acute urinary symptoms. No new neurological or musculoskeletal complaints. Rest of review of systems is negative. ALLERGIES: PENICILLIN. SOCIAL HISTORY: Positive for tobacco, negative for alcohol. FAMILY HISTORY: No inheritable diseases. HOME MEDICATIONS: Include Lopressor, Xopenex, Lasix, Advair, aspirin. PHYSICAL EXAMINATION: GENERAL: The patient appears comfortable this morning. He is not short of breath at rest. VITAL SIGNS: Temperature is 97.8, pulse 60, respirations 18/20, blood pressure 108/53. Oxygen saturation on nasal cannula is 92%. HEENT: Normocephalic, atraumatic. NECK: No JVD. CARDIOVASCULAR: Systolic ejection murmur at the lower left sternal border. Positive S3 gallop. LUNGS: Crackles at both bases. Minimal bilateral rhonchi. No wheezing. EXTREMITIES: Mild edema. No cyanosis, no clubbing. Calves are nontender to palpation. GASTROINTESTINAL: Abdomen is soft, nontender, nondistended. Bowel sounds are positive. SKIN: No acute rash. NEUROLOGIC: Limited at the present time. PERTINENT LABORATORY DATA: Chest x-ray was done yesterday and reviewed. There is a definite increase in the pulmonary vascular congestive changes -- consistent with recurrent congestive heart failure. The patient also had a myocardial stress test on 02/12/2017. The stress test shows worsening perfusion defects compared to the previous study. There is also a moderate overall decrease in the left ventricular function. CBC: White count 9.5, hemoglobin 15.0, hematocrit 43.2, platelets of 313. Complete metabolic profile : Sodium 129, chloride 89. BUN 60, glucose 147, bilirubin 1.6, alkaline phosphatase 144, B-type natriuretic peptide 5770, troponin 0.03. Rest of the metabolic profile is within normal limits. IMPRESSION: 1. Recurrent congestive heart failure. 2. Chest discomfort -- rule out cardiac ischemia. 3. History of coronary artery disease, recent abnormal stress test. 4. Chronic obstructive pulmonary disease. 5. Mild bronchitis. 6. Permanent pacemaker. PLAN: Again, I did discuss the case with the nurse and son-in-law at length. The patient was just recently discharged home after an admission for acute congestive heart failure. At home, he experienced shortness of breath at rest, dyspnea on exertion and cough. In addition, he also experienced chest discomfort. The chest discomfort is not present today at the time of my examination. Pertinent to note is the recent abnormal stress test. I would certainly get Dr. Harrison reconsulted on this case for additional management. On physical exam, there is only mild bronchospasm noted. I will start Xopenex nebulizer treatments and inhaled steroids for now. The patient's oxygen saturation is actually improved -- from the previous admission. Lastly, there is a questionable history of temperatures. Again, these temperatures are not documented in the vital signs. Dr. Walter has been called on the case. I will order a stat procalcitonin level to be done -- to try and discern whether there is an underlying pneumonia. I did review the chest x-ray as above. Compared to the previous film, there is a definite increase in the pulmonary vascular congestive changes -- most consistent with recurrent congestive heart failure. The patient was given a stat dose of Lasix yesterday. He does feel better this morning. Additional pulmonary intervention will be based on the clinical status of the patient, as well as the above results The patient's overall status/prognosis remains very guarded. I will discuss the above with Dr. Angulo this morning. Riley Fu MD cc: [id number] TT: 02/15/2017 08:52:27 Confirmation # [id number] Dictation # [id number] mn MARGARETTE
--- NOTE | 2017-02-15 09:40 | RAD ---
HISTORY: sob, cp COMPARISON: 02/12/2017 FINDINGS: LUNGS: No change in minimal interstitial densities PLEURA: No significant pleural effusion identified, no pneumothorax apparent. CARDIOVASCULAR: Normal. OSSEOUS STRUCTURES: Sternal wires VISUALIZED UPPER ABDOMEN: Normal. OTHER FINDINGS: Single lead pacemaker IMPRESSION: No active disease.
[2017-02-15 09:47] LABS: BLOOD UREA NITROGEN 51 mg/dL (7-21); CALCIUM 8.5 mg/dL (8.4-10.5); CARBON DIOXIDE 31 mmol/L (21-33); CHLORIDE 93 mmol/L (98-107); GFR AFRICAN-AMERICAN > 60; GLUCOSE,RANDOM 173 mg/dL (70-110); POTASSIUM 3.7 mmol/L (3.6-5.0); SODIUM 135 mmol/L (132-148)
--- NOTE | 2017-02-15 10:52 | CON ---
DATE: 02/15/2017 SERVICE: Cardiology. REASON FOR CONSULTATION: Shortness of breath, chest pain, decompensated congestive heart failure, el evated BNP. BRIEF CLINICAL HISTORY: This is an 86-year-old male with past medical history significant for rivera ry artery disease, CABG, recently discharged on , came back after 24 hours of being discharged wi th complaint of shortness of breath and left-sided upper chest pain. The patient had coronary artery disease, CABG 08/2008 when the patient had abnormal stress test and underwent cardiac catheterizatio n ____ shows left main 80%-90% stenosis, LAD 30%, circumflex 90% stenosis. The patient subsequently underwent a 3-vessel CABG in 08/2008, MOCTEZUMA to LAD, SVG to RCA and SVG to OM1, recently admitted with decompensated congestive heart failure, underwent a stress test that shows abnormal fixed defect. Th e patient came in yesterday again with shortness of breath and elevated BNP and chest pain. PAST MEDICAL HISTORY: Significant for coronary artery disease, CABG as mentioned in 08/2008, history of COPD, history of permanent pacemaker. The patient presented with complete heart block on 015. Previous cardiac workup as follows: The patient had most recently a stress test done on 02/12/2017 t hat shows moderate LV dysfunction, ejection fraction reported at 59%. In comparison to the last stud y, 12/20/2014, the perfusion defect appeared more prominent current study, abnormal fixed defect, abn ormal Persantine thallium. The patient had an echo most recently, ejection fraction 30%-35%, mild ao rtic stenosis, mild tricuspid regurgitation, ____ systolic pressure 38, inferior hypokinesis. The darren arevalo had coronary artery bypass surgery, CABG, 08/2008, 3-vessel CABG, MOCTEZUMA to LAD, saphenous venous graft ____ saphenous graft to obtuse marginal 1. SOCIAL HISTORY: Denies smoking. Denies any history of alcohol abuse. CURRENT MEDICATIONS: The patient at home was taking metoprolol, Xopenex, Lasix, Advair, aspirin. ALLERGIES: PENICILLIN. REVIEW OF SYSTEMS: As per HPI. PHYSICAL EXAMINATION: VITAL SIGNS: Temperature afebrile, heart rate ____, blood pressure 180/____. HEENT: PERRLA. Extraocular muscles intact. NECK: Supple. No carotid bruits. No thyromegaly. CHEST: Clear to auscultation. HEART: S1, S2 regular. ABDOMEN: Soft. EXTREMITIES: Clubbing, cyanosis negative. LABORATORY DATA: Blood workup as follows: WBC ____, hemoglobin 15, hematocrit 43.2, platelet count 313. Chemistry shows sodium ____, potassium 4.4, chloride ____, carbon dioxide ____, anion gap of 13 , BUN 60, creatinine 1.1. Troponin 0.01 negative. IMPRESSION: Recurrent chest pain, shortness of breath, acute exacerbation of chronic obstructive pul monary disease, decompensated congestive heart failure, acute on chronic systolic dysfunction, abnorm al stress test, history of coronary artery disease, coronary artery bypass graft 08/2008, left manager intern al mammary artery to left anterior descending, saphenous graft to right coronary artery, saphenous gr aft to obtuse marginal 1, history of peripheral arterial disease. Family opted for medical treatment . Recent echo shows ejection fraction 30%-35%, mild aortic ____, mild tricuspid regurgitation, right ventricular systolic pressure 35 ____ hypokinesis, history of permanent pacemaker 07/27/2015, patien t admitted with complete heart block, history of ____ seen by Dr. Paulino, decided to be treated med [facility]. RECOMMENDATION: We will load with Plavix and aspirin. Continue Coreg, continue diuretics. Will sche dule a cardiac catheterization, left and right heart. Further ____ after cardiac catheterization. I n the interim, continue to load with Plavix. Continue aspirin, continue Lasix. We will follow with you. Thank you, Dr. Angulo, for providing the opportunity in taking care of this patient. Vasu Harrison MD cc: [id number] TT: 02/15/2017 10:51:23 Confirmation # [id number] Dictation # [id number] ceasar
--- NOTE | 2017-02-15 11:50 | HP ---
The patient is on telemetry. HISTORY OF PRESENT ILLNESS: He is an 86-year-old male with a past medical history significant for co ngestive heart failure, coronary artery disease, permanent pacemaker, status post coronary bypass gra ft, chronic obstructive pulmonary disease, who presents back to the hospital with progressing shortne ss of breath, dyspnea on exertion, cough and now currently shortness of breath at rest. He did have some chest pain on the day prior to admission. Currently, he is asymptomatic. REVIEW OF SYSTEMS: Entirely unremarkable. DRUG ALLERGIES: PENICILLIN. SOCIAL HISTORY: The patient is a former smoker who does not use alcohol. PHYSICAL EXAMINATION: CURRENT VITAL SIGNS: Temperature of 97.8, pulse rate of 61, blood pressure 108/53, respiratory rate of 20 with an O2 saturation of 92% on a nasal cannula. HEENT: ARNULFO, EOMI. There is no icterus present. NECK: Supple with a full range of motion and no JVD is present. LUNGS: With diminished breath sounds with no wheezes or rales. HEART: With a regular rate and rhythm. ABDOMEN: Benign. EXTREMITIES: Show trace edema. NEUROLOGIC: There are no focal motor deficits. LABORATORY VALUES: WBC of 9.5, hemoglobin and hematocrit of 15.0 and 43.2. There are 73% granulocyt es. Coagulation is essentially normal. Chemistry shows a sodium of 129, chloride of 89, BUN of 60, creatinine of 1.1, random glucose which is nonfasting of 147. BNP of 5770. PROBLEM LIST: Currently recurrent congestive heart failure, pneumonia and chest pain. Dr. Fu is seeing the patient. He will be cathed today at approximately 3:00 in the afternoon. Alessandro Angulo MD cc: [id number] TT: 02/15/2017 11:50:22 tn
[2017-02-15] MEDS ORDERED: Lidocaine 2% Inj (20ml) ONE ×2 (14:52→15:28)
[2017-02-15] MEDS ORDERED: Iohexol 350 MG/100 ML VIAL ONE (14:53)
[2017-02-15] MEDS ORDERED: Midazolam 2 MG/2 ML VIAL ONE (15:05)
[2017-02-15] MEDS ORDERED: Sodium Chloride 0.9% 1,000 ML IV SCH (16:30)
--- NOTE | 2017-02-15 17:21 | CP.PCM.CON ---
History of Present Illness - History of Present Illness History of Present Illness: 86 year old male with PMH of CAD S/P CABG, chronic CHF, S/P pacemaker placement , COPD was brought in to [facility] because of dyspnea on exertion, shortness of breath fort the past 2-3 days. He was just recently admitted for the same symptoms and a stress was done which showed possible myocardial ischemia and patient was to be scheduled for cardiac catheterization. The patient low grade temperatures in the ED but not outright fever. The patient denies chills, no headache or dizziness, no nausea or vomiting, no dysuria, no diarrhea, no abdominal pain. In the ED, CXR showed minimal interstitial densities. Infectious Diseases consult is requested to further evaluate and manage. Review of Systems - Review of Systems All systems: reviewed and no additional remarkable complaints except (as per HPI ) Past Patient History - Infectious Disease Hx of Infectious Diseases: None - Past Social History Smoking Status: Former Smoker - CARDIAC Hx Cardiac Disorders: Yes Hx Congestive Heart Failure: Yes Hx Hypertension: Yes Hx Pacemaker: Yes - PULMONARY Hx Respiratory Disorders: Yes (02 dependent) - NEUROLOGICAL Hx Neurological Disorder: Yes - HEENT Hx HEENT Problems: Yes (reading glasses) - RENAL Hx Chronic Kidney Disease: No - ENDOCRINE/METABOLIC Hx Endocrine Disorders: Yes (thyroid nodule removed over 15 yrs ago) - HEMATOLOGICAL/ONCOLOGICAL 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) - INTEGUMENTARY Hx Dermatological Problems: Yes Hx Basil Cell: Yes (nose) - MUSCULOSKELETAL/RHEUMATOLOGICAL Hx Falls: No - GASTROINTESTINAL Hx Gastrointestinal Disorders: No - GENITOURINARY/GYNECOLOGICAL Hx Genitourinary Disorders: No - PSYCHIATRIC Hx Substance Use: No - SURGICAL HISTORY Hx Surgeries: Yes Hx Open Heart Surgery: Yes (CABG) - ANESTHESIA Hx Anesthesia Reactions: No Meds Allergies/Adverse Reactions: Allergies Allergy/AdvReac Type Severity Reaction Status Date / Time Penicillins AdvReac SHORTNESS Verified 02/15/17 03:02 OF BREATH - Medications Medications: Current Medications Budesonide (Pulmicort Respules) 0.5 mg IH [id number] [facility] Last Admin: 02/15/17 07:47 Dose: 0.5 mg Clopidogrel Bisulfate (Plavix) 75 mg PO DAILY [facility] Levalbuterol HCl (Xopenex) 0.63 mg IH [id number] [facility] Last Admin: 02/15/17 07:47 Dose: 0.63 mg Levalbuterol HCl (Xopenex) 0.63 mg IH Q2 PRN PRN Reason: Shortness of Breath Physical Exam - Constitutional Appears: Non-toxic, No Acute Distress - Head Exam Head Exam: NORMAL INSPECTION - ENT Exam ENT Exam: Mucous Membranes Moist - Neck Exam Neck exam: Negative for: Lymphadenopathy, Meningismus - Respiratory Exam Respiratory Exam: Decreased Breath Sounds (with crackles at the bases) - Cardiovascular Exam Cardiovascular Exam: +S1, +S2 - GI/Abdominal Exam GI & Abdominal Exam: Soft. absent: Tenderness Results - Vital Signs Recent Vital Signs: Last Vital Signs Temp 97.8 F 02/15/17 06:00 Pulse 61 02/15/17 06:00 Resp 20 02/15/17 06:00 BP 108/53 L 02/15/17 06:00 Pulse Ox 92 L 02/15/17 06:00 - Labs Result Diagrams: 02/14/17 21:45 02/15/17 05:30 Labs: Laboratory Results - last 24 hr 02/15/17 02/15/17 01:52 07:00 pCO2 42 pO2 45.0 L HCO3 30.6 H ABG pH 7.47 H ABG Total CO2 31.9 H ABG O2 Saturation 86.5 L ABG Base Excess 6.2 H ABG Potassium 3.5 L Sodium 132.0 Chloride 97.0 L Glucose 168 H Lactate 1.0 FiO2 32.0 Lactate Dehydrogenase 301 L Total Creatine Kinase 51 Troponin I 0.01 D Arterial Blood Potassium 3.5 L Assessment & Plan - Assessment and Plan (Free Text) Plan: Assessment Probable CHF exacerbation, unlikely pneumonia CAD S/P CABG chronic CHF S/P pacemaker placement COPD Plan Patient was given a dose of IV Vancomycin and Cefepime; follow up blood cx; PCT is only 0.21 - will monitor off antibiotics and follow up Cardiology plans will monitor clinically
[2017-02-15] MEDS: Milrinone 20mg/100ml D5W 100 ML IV PRN (17:22)
[2017-02-15] MEDS ORDERED: Cefepime 1gm in NS 100ml 1 GM/100 ML BAG IVPB ONE (23:25)
--- NOTE | 2017-02-16 00:32 | CP.PCM.PN ---
Subjective - Date & Time of Evaluation Date of Evaluation: 02/16/17 Time of Evaluation: 00:32 - Subjective Subjective: Patient was seen at bedside .Spoke to him with help of daughter. Complained of epigastric pain,vomited once, feels nauseous,has weakness in both upper extremities, no weakness in legs, later on claimed that vision was cloudy at that time FSBS was ordered which was 174 mg%. Denies chest pain,sob. I noticed that there was about 100 cc light brown color vomitus in kidney tray. ROS: was neg except as mentioned above. Medical record was reviewed. This 86 year old hspanic male was admitted with , chest pain, Has PMH of CAD,PPM,CHF, CABG, COPD. Objective - Vital Signs/Intake and Output Vital Signs (last 24 hours): Temp Pulse Resp BP Pulse Ox 97.5 F L 60 18 160/74 H 90 L 02/16/17 00:01 02/16/17 00:01 02/16/17 00:01 02/16/17 00:01 02/16/17 00:01 - Medications Medications: Current Medications Aspirin (Ecotrin) 81 mg PO DAILY [facility] Last Admin: 02/15/17 09:45 Dose: 81 mg Budesonide (Pulmicort Respules) 0.5 mg IH [id number] [facility] Last Admin: 02/15/17 20:20 Dose: 0.5 mg Furosemide (Lasix) 40 mg IV DAILY [facility] Milrinone Lactate/Dextrose (Primacor 20mg/100ml D5w) 100 mls @ 3.69 mls/hr IV .Q24H PRN; Protocol; 0.2 MCG/KG/MIN PRN Reason: TITRATE PER MD ORDER Last Admin: 02/15/17 17:22 Dose: 0.2 mcg/kg/min, 3.69 mls/hr Levalbuterol HCl (Xopenex) 0.63 mg IH [id number] [facility] Last Admin: 02/15/17 20:20 Dose: 0.63 mg Levalbuterol HCl (Xopenex) 0.63 mg IH Q2 PRN PRN Reason: Shortness of Breath Ondansetron HCl (Zofran Inj) 4 mg IVP STAT STA Stop: 02/16/17 00:29 Pantoprazole Sodium (Protonix Inj) 40 mg IVP STAT STA Stop: 02/16/17 00:29 - Labs Labs: 02/15/17 05:30 PT 12.0 Seconds (9.9-11.8) H 02/14/17 21:45 INR 1.11 (0.93-1.08) H 02/14/17 21:45 APTT 30.1 Seconds (23.7-30.8) 02/14/17 21:45 - Constitutional Appears: Well, No Acute Distress - Head Exam Head Exam: ATRAUMATIC, NORMAL INSPECTION, NORMOCEPHALIC - Eye Exam Eye Exam: Normal appearance - ENT Exam ENT Exam: Mucous Membranes Moist - Neck Exam Neck Exam: Normal Inspection - Respiratory Exam Respiratory Exam: Clear to Ausculation Bilateral, NORMAL BREATHING PATTERN - Cardiovascular Exam Cardiovascular Exam: REGULAR RHYTHM. absent: JVD Additional comments: Chest wall has scar 2* to CABG. - GI/Abdominal Exam GI & Abdominal Exam: Soft, Normal Bowel Sounds. absent: Bruit, Distended, Firm , Guarding, Rigid, Tenderness, Mass, Organomegaly, Pulsatile Mass, Rebound - Rectal Exam Rectal Exam: Deferred - Extremities Exam Extremities Exam: Normal Inspection - Back Exam Back Exam: NORMAL INSPECTION - Neurological Exam Neurological Exam: Alert, Oriented x3 - Psychiatric Exam Psychiatric exam: Normal Affect, Normal Mood - Skin Skin Exam: Normal Color Assessment and Plan - Assessment and Plan (Free Text) Assessment: Epigastric pain. Nausea/Vomiting. R/O upper GI bleeding. COPD. CAD. CHF. PPM. Hx CABG. Plan: Zofran 4 mg IV stat. Protonix 40 mg IV stat. CBC, PT, PTT stat. Type and screen stat. Hemo occult test of vomitus. F/U am CBC. Orthostatic vital set x 1. GI prophylaxis. May need GI consultation if hemo occult is positive. Will inform PMD in AM, unless warranted to notify earlier. Patient felt better after receiving zofran and protonix.
[2017-02-16 01:27] LABS: ADD MANUAL DIFF? NO
[2017-02-16 01:28] LABS: BASO # 0.01 K/mm3 (0.0-2.0); BASO % 0.1 % (0.0-3.0); GRAN # 6.69 (1.4-6.5); GRAN % 71.7 % (50.0-68.0); HEMATOCRIT 44.7 % (42.0-52.0); LYMPH # 1.6 (1.2-3.4); LYMPH % 17.6 % (22.0-35.0); MEAN CORPUSCULAR HEMOGLOBIN 33.3 pg (25.0-35.0); MEAN PLATELET VOLUME 9.4 fl (7.0-11.0); MONO % 10.6 % (1.0-6.0); PLATELET COUNT 355 10^3/uL (120.0-450.0); RED CELL DISTRIBUTION WIDTH 14.1 % (11.5-14.5); WHITE BLOOD COUNT 9.3 10^3/ul (4.5-11.0)
[2017-02-16 01:38] LABS: INR 1.1 (0.93-1.08); PARTIAL THROMBOPLASTIN TIME 28.6 Seconds (23.7-30.8)
[2017-02-16] MEDS: Levalbuterol 0.63 MG/3 ML Inhal Soln UD IH SCH ×4 (01:45→20:28)
[2017-02-16] MEDS: Pantoprazole 40 mg EC Tab PO SCH (05:41)
[2017-02-16] MEDS ORDERED: Pantoprazole 20 mg EC Tab PO SCH (06:00)
[2017-02-16 07:49] LABS: ADD MANUAL DIFF? NO
[2017-02-16 07:56] LABS: BASO # 0.01 K/mm3 (0.0-2.0); BASO % 0.1 % (0.0-3.0); GRAN % 67.3 % (50.0-68.0); HEMATOCRIT 43.2 % (42.0-52.0); LYMPH # 1.9 (1.2-3.4); LYMPH % 19.5 % (22.0-35.0); MEAN CELL VOLUME 98.6 fL (80.0-105.0); MEAN CORPUSCULAR HEMOGLOBIN 32.9 pg (25.0-35.0); MEAN CORPUSCULAR HGB CONC 33.3 g/dl (31.0-37.0); MEAN PLATELET VOLUME 9.2 fl (7.0-11.0); MONO # 1.3 (0.1-0.6); MONO % 13.1 % (1.0-6.0); PLATELET COUNT 347 10^3/uL (120.0-450.0); WHITE BLOOD COUNT 9.5 10^3/ul (4.5-11.0)
[2017-02-16] MEDS: Budesonide 0.5 mg/2 ml Inhal Susp UD IH SCH ×2 (07:57→20:28)
[2017-02-16 08:15] LABS: ALB/GLOB RATIO 1.1 (1.1-1.8); ALKALINE PHOSPHATASE 139 U/L (38-133); ALT/SGPT 24 U/L (7-56); AST/SGOT 34 U/L (15-59); BILIRUBIN,TOTAL 1.2 mg/dL (0.2-1.3); BLOOD UREA NITROGEN 46 mg/dL (7-21); CALCIUM 8.7 mg/dL (8.4-10.5); CARBON DIOXIDE 34 mmol/L (21-33); CHLORIDE 98 mmol/L (95-110); GFR AFRICAN-AMERICAN > 60; GLUCOSE,RANDOM 145 mg/dL (70-110); MAGNESIUM 2.5 mg/dL (1.7-2.2); PHOSPHOROUS 3.2 mg/dL (2.5-4.5); POTASSIUM 3.6 mmol/L (3.6-5.0); SODIUM 140 mmol/L (132-148); TOTAL PROTEIN 6.9 g/dL (5.8-8.3)
--- NOTE | 2017-02-16 10:39 | PN ---
DATE: 02/16/2017 SUBJECTIVE: The patient appears comfortable at rest. He is not short of breath. PHYSICAL EXAMINATION: VITAL SIGNS: Temperature is 97.6, pulse 64, respirations 18/20, blood pressure 127/58. Oxygen saturation on nasal cannula is 91%. HEENT: Normocephalic, atraumatic. No JVD. CARDIOVASCULAR: Systolic ejection murmur at the lower left sternal border. Positive S3 gallop. LUNGS: Less crackles at the bases. Less rhonchi. No wheezing. EXTREMITIES: Mild edema. No cyanosis, no clubbing. Calves are nontender to palpation. GASTROINTESTINAL: Abdomen is soft, nontender, nondistended. Bowel sounds are positive. SKIN: No acute rash. NEUROLOGIC: Limited at the present time. IMPRESSION: 1. Recurrent congestive heart failure. 2. Chest discomfort -- rule out cardiac ischemia. 3. History of coronary artery disease, recent abnormal stress test. 4. Chronic obstructive pulmonary disease. 5. Mild bronchitis. 6. Permanent pacemaker. PLAN: The patient appears comfortable this morning. He is not short of breath at rest. He does have a relative at bedside. She states that he had a good night. On physical exam, there is less bronchospasm noted. I will continue with the current nebulizer treatments and inhaled steroids for now. I did review the laboratory data from yesterday. The procalcitonin is negative. I doubt acute pneumonia at this point in time. Input by Dr. Busch (infectious disease) is noted. The patient is status post cardiac catheterization by Dr. Harrison. I cannot access the official results at this point in time. The patient is currently on Lasix and milrinone. His clinical status is improved -- but remains very guarded overall. I will discuss the above with the attending physician. Riley Fu MD cc: [phone] TT: 02/16/2017 10:38:52 Confirmation # [id number] Dictation # [id number] tn MTDD
--- NOTE | 2017-02-16 11:15 | PN ---
DATE: 02/16/2017 SUBJECTIVE: The patient seen and examined at bedside on the telemetry gallardo. No acute events overnight. He remains afebrile and hemodynamically stable. The patient is status post cardiac catheterization with Dr. Harrison, which demonstrated multivessel coronary artery disease and severe peripheral arterial disease. Post-procedure, the patient was started on milrinone infusion and reports significant improvement in his respiratory status since administration of milrinone. OBJECTIVE: VITAL SIGNS: Temperature 97.6, pulse 64, blood pressure 127/58, respiratory rate 20, oxygen saturation 91% on 2 liters nasal cannula. GENERAL: Elderly man appearing his stated age, in no apparent distress. HEENT: PERRL. EOMI. No scleral icterus. No conjunctival pallor. NECK: Supple, full range of motion, no JVD, no bruits. LUNGS: Bibasilar crackles with few scattered rhonchi. CARDIOVASCULAR: Regular rate and rhythm. Normal S1 and S2. Grade II/ systolic ejection murmur at the left lower sternal border. ABDOMEN: Normoactive bowel sounds, soft, nontender, nondistended. EXTREMITIES: Trace lower extremity edema bilaterally. NEUROLOGIC: Awake, alert and oriented x 3. No focal motor deficits. LABORATORY DATA: WBC 9.5 with 67% neutrophils, hemoglobin 14, hematocrit 43, platelets 347. Chemistry is pending. Blood cultures with no growth to date. ASSESSMENT: The patient is an 86-year-old man with past medical history of chronic obstructive pulmonary disease/emphysema, hypertension and coronary artery disease, status post coronary artery bypass graft, who presents to [facility] with a 1-week history of progressively worsening dyspnea , 2 pillow orthopnea, lower extremity edema and was recently discharged for management of acute systolic heart failure exacerbation, who returned with similar symptoms who is now status post cardiac catheterization with no acute intervention performed and who has since been started on a milrinone infusion. PLAN: 1. Acute systolic heart failure exacerbation. Input from Dr. Harrison, cardiology and greatly appreciated. Continue with Lasix 40 mg IV daily and milrinone infusion. 2. Coronary artery disease, status post coronary artery bypass graft. As above , the patient is status post cardiac catheterization with Dr. Harrison however, no intervention was able to be performed given anatomic difficulties. Dr. Harrison did have a discussion with family regarding a possible radial approach; however , after discussing the risks and benefits (particularly the increased risk of stroke), the family at present opted for conservative medical management. Continue with current care as per Dr. Harrison. 3. Hypertension. Blood pressure controlled. Continue with current medications. 4. Chronic obstructive pulmonary disease/emphysema. Input from Dr. Fu noted and appreciated. Continue with current medications. 5. Prophylaxis. GI prophylaxis not indicated as the patient is eating. Continue with Lovenox 40 mg SC daily for deep venous thrombosis prophylaxis. CODE STATUS: Full code. Shiva Angulo MD cc: [phone] TT: 02/16/2017 11:14:41 Confirmation # [id number] Dictation # [id number] jn MTDD
--- NOTE | 2017-02-16 13:36 | CARDCATH ---
PROCEDURE DATE: 02/15/2017 PROCEDURE: Right and left heart catheterization. AIRCRAFT MACHINIST: Dr. Vasu Harrison. REFERRING PHYSICIAN: Dr. Shiva Anguol. SCHEDULING: Urgent. GENERAL UTILITY WORKER: Papito Wells, spray technician. BRIEF CLINICAL HISTORY: This is an 86-year-old male with a past medical history significant for coronary artery bypass surgery, 3-vessel bypass, MOCTEZUMA to LAD, saphenous graft to the RCA and saphenous venous graft to circumflex. Admitted with recurrent chest pain and shortness of breath. The patient was recently discharged. Had an abnormal stress test, fixed defect, no reversible ischemia, but the patient was having chest pain after getting discharged for 24 hours and readmitted again The patient is scheduled for elective left heart catheterization. PROCEDURE: The patient was brought to the operations label clerk and put on cath table and drapped in sterile fashion. Left heart catheterization was attempted. Right femoral access was obtained, unable to advance the wire because of high grade stenosis in common iliac with ectatic coronary, very tortuous and then the left access was obtained and again wire cannot be advanced, multiple wires used, whooley, glide wire and even with wire on right Mili catheter. Multiple high- grade stenoses with ectatic vessel and very slow flow in common iliac and high- grade stenosis at the aorta level noted, so it was stopped at this time. Also, left radial was not attempted because of the high risk of a stroke, though the right heart catheterization was done with finding as follows: RA 8, RV 38/13, PA 50/18, mean PA 25, pulmonary capillary wedge pressure 12/15, cardiac output 2.67, cardiac index 1.61, PVR- 4.5 bullock unit.. IMPRESSION: 1. Elevated pulmonary pressure with high pressure with a PA pressure mean 25 and pulmonary vascular resistance 4.5 bullock, severe PAD. 2. Unable to advance the wire from the right femoral and left femoral access. PLAN: At this time is to start Primacor, treat for pulmonary hypertension for 24-48 hours. The patient will get the benefit. After this the patient will be discharged. Should the patient's chest pain conitues left radial access can be attempted, but will be high risk for stroke because of the underlying so much calcification and plaque all over the aorta, so will try to treat medically for now and Recent Stress terst has also fixed defect. Will discuss with the family. Thank you, Dr. Angulo, for allowing me the opportunity in taking care of the patient. Vasu Harrison MD cc: [id number] TT: 02/15/2017 19:13:51 torres PFEIFFER
--- NOTE | 2017-02-16 13:40 | PN ---
DATE: 02/15/2017 REASON FOR CONSULTATION: Shortness of breath, status post cardiac catheterization right heart. BRIEF CLINICAL HISTORY: This is an 86-year-old male with a past medical history significant for omaira nary artery disease, CABG in 2007, 3 vessels, MOCTEZUMA to LAD, saphenous vein graft to the RCA and SVG to OM1, who was recently admitted with decompensated congestive heart failure. The patient underwent a stress with no reversible ischemia. The patient admitted again with left-sided chest pain, tr oponin negative and shortness of breath. The patient is scheduled for left and right heart catheteri zation. The patient underwent right heart catheterization that revealed elevated right-sided pressur e with a PA pressure of 50, mean PA 25, pulmonary vascular resistance 4.5 . RA was 8, RV 38/13, pulmonary capillary wedge pressure . heart catheterization attempted. A right groin fem oral access was obtained, catheter because of ectatic common iliac as well as high grade stenos is, multiple noted. Then left-sided access was obtained the same below the aorta; high grade stenosi s and just above the bifurcation the aorta high grade stenosis as well as bilateral common pedro c and multiple stenosis with ectasia noted, right heart catheterization was done. IMPRESSION: Pulmonary hypertension, fixed defect, no reversible ischemia, cardiomyopathy, ejection f raction by echo 30% to 35%, by stress test ejection fraction reported, pulmonary hypertension. RECOMMENDATION: Will continue Primacor and Lasix. I discussed with the patient's family. If the pa tient developed chest pain again, the option would be to do from the left radial, but considering the patient's high plaque in the aorta, high risk for ( for stroke), so will try to avoid unl ess the patient develops chest pain and [id number] myocardial infarction; otherwise will treat me dically. In the interim, continue aspirin, continue Lasix, continue Primacor, continue antibiotic as ordered. Will turn over to Dr. Mai tomorrow. Will follow with you. I will discuss with the patient's family, the son-in-law and the 2 daughters, in length and will also discussed with you. Thank you, Dr. Angulo, for providing me the opportunity in taking care of the patient. Vasu Harrison MD cc: [id number] TT: 02/15/2017 19:23:34 Confirmation # [id number] Dictation # [id number] dn
--- NOTE | 2017-02-16 14:38 | CP.PCM.PN ---
Subjective - Date & Time of Evaluation Date of Evaluation: 02/16/17 Time of Evaluation: 11:30 - Subjective Subjective: Breathing a little better today, no fevers, not in distress. Objective - Vital Signs/Intake and Output Vital Signs (last 24 hours): Temp Pulse Resp BP Pulse Ox 97.7 F 60 20 136/59 L 91 L 02/16/17 12:00 02/16/17 12:00 02/16/17 12:00 02/16/17 12:00 02/16/17 05:48 Intake and Output: 02/16/17 02/16/17 06:59 18:59 Intake Total 472 Output Total 500 Balance -28 - Medications Medications: Current Medications Aspirin (Ecotrin) 81 mg PO DAILY [facility] Last Admin: 02/15/17 09:45 Dose: 81 mg Budesonide (Pulmicort Respules) 0.5 mg IH [id number] [facility] Last Admin: 02/16/17 07:57 Dose: 0.5 mg Furosemide (Lasix) 40 mg IV DAILY [facility] Last Admin: 02/16/17 10:38 Dose: 40 mg Milrinone Lactate/Dextrose (Primacor 20mg/100ml D5w) 100 mls @ 3.69 mls/hr IV .Q24H PRN; Protocol; 0.2 MCG/KG/MIN PRN Reason: TITRATE PER MD ORDER Last Admin: 02/15/17 17:22 Dose: 0.2 mcg/kg/min, 3.69 mls/hr Levalbuterol HCl (Xopenex) 0.63 mg IH [id number] [facility] Last Admin: 02/16/17 14:05 Dose: 0.63 mg Levalbuterol HCl (Xopenex) 0.63 mg IH Q2 PRN PRN Reason: Shortness of Breath Pantoprazole Sodium (Protonix Ec Tab) 40 mg PO 0600 [facility] Last Admin: 02/16/17 05:41 Dose: 40 mg - Labs Labs: 02/16/17 07:46 02/16/17 07:46 PT 11.9 Seconds (9.9-11.8) H 02/16/17 00:45 INR 1.10 (0.93-1.08) H 02/16/17 00:45 APTT 28.6 Seconds (23.7-30.8) 02/16/17 00:45 - Constitutional Appears: Non-toxic, No Acute Distress - Head Exam Head Exam: NORMAL INSPECTION - Neck Exam Neck Exam: absent: Meningismus - Respiratory Exam Respiratory Exam: Decreased Breath Sounds - Cardiovascular Exam Cardiovascular Exam: +S1, +S2 - GI/Abdominal Exam GI & Abdominal Exam: Soft. absent: Tenderness Assessment and Plan - Assessment and Plan (Free Text) Plan: Assessment Probable CHF exacerbation, unlikely pneumonia, slowly improving CAD S/P CABG chronic CHF S/P pacemaker placement COPD Plan continue to monitor off antibiotics since he is at risk for nosocomial infections
[2017-02-16] MEDS: Milrinone 20mg/100ml D5W 100 ML IV PRN (15:08)
--- NOTE | 2017-02-16 15:16 | PN ---
DATE: 02/16/[address] Harrison. The interview of the patient was conducted through the as a vest maker. The patient denies any chest pain or groin bleeding. PHYSICAL EXAMINATION: VITAL SIGNS: Blood pressure 136/59, heart rate 60, temperature 97.7, respirations 20. HEENT: Normocephalic. CHEST: Diminished breath sounds over the bases. HEART: S1, S2 regular. EXTREMITIES: No edema. LABORATORIES: Hemoglobin, hematocrit, white count, and platelet count are within normal limits. SMA -7: Sodium 140, potassium 3.6, chloride 98, CO2 of 34, glucose 145, BUN 46, creatinine 0.8. Most re cent troponin yesterday 0.01. ASSESSMENT: 1. Coronary artery disease, status post coronary artery bypass surgery. 2. Significantly reduced ejection fraction, most recent ejection fraction was estimated between 30% t o 35%. 3. Pulmonary hypertension. 4. Peripheral vascular disease. RECOMMENDATIONS: Continue aspirin 81 mg once a day, Lasix 40 mg intravenously twice a day, milrinone infusion, Protonix 40 mg once a day. Further attempts for cardiac catheterization will be considere d if the patient develops non-ST elevation myocardial infarction or has significant chest pain or isc hemic EKG changes. Lazarus Mai MD cc: [id number] TT: 02/16/2017 15:15:05 Confirmation # [id number] Dictation # [id number]
--- NOTE | 2017-02-16 16:18 | CARD ---
APPROVED REPORT EKG Measurement Heart [id number] NM P43 [id number] <Conclusion> Electronic ventricular pacemaker
[2017-02-17] MEDS: Levalbuterol 0.63 MG/3 ML Inhal Soln UD IH SCH ×4 (02:25→19:33)
[2017-02-17] MEDS: Pantoprazole 40 mg EC Tab PO SCH (05:59)
[2017-02-17 07:49] LABS: ADD MANUAL DIFF? NO
[2017-02-17] MEDS: Budesonide 0.5 mg/2 ml Inhal Susp UD IH SCH ×2 (07:51→19:33)
[2017-02-17 08:16] LABS: ALKALINE PHOSPHATASE 124 U/L (38-133); ALT/SGPT 33 U/L (7-56); AST/SGOT 33 U/L (15-59); BILIRUBIN,TOTAL 1.3 mg/dL (0.2-1.3); BLOOD UREA NITROGEN 41 mg/dL (7-21); CALCIUM 8.2 mg/dL (8.4-10.5); CARBON DIOXIDE 34 mmol/L (21-33); CHLORIDE 94 mmol/L (95-110); GFR AFRICAN-AMERICAN > 60; GLUCOSE,RANDOM 107 mg/dL (70-110); POTASSIUM 3.7 mmol/L (3.6-5.0); SODIUM 133 mmol/L (132-148); TOTAL PROTEIN 6.3 g/dL (5.8-8.3)
[2017-02-17 08:36] LABS: BASO # 0.01 K/mm3 (0.0-2.0); BASO % 0.1 % (0.0-3.0); EOS % 0.3 % (1.5-5.0); GRAN # 4.23 (1.4-6.5); GRAN % 54.6 % (50.0-68.0); HEMATOCRIT 40.7 % (42.0-52.0); LYMPH # 2.5 (1.2-3.4); LYMPH % 31.7 % (22.0-35.0); MEAN CELL VOLUME 100.5 fL (80.0-105.0); MEAN CORPUSCULAR HEMOGLOBIN 32.6 pg (25.0-35.0); MEAN CORPUSCULAR HGB CONC 32.4 g/dl (31.0-37.0); MEAN PLATELET VOLUME 9.4 fl (7.0-11.0); MONO % 13.3 % (1.0-6.0); PLATELET COUNT 344 10^3/uL (120.0-450.0); RED CELL DISTRIBUTION WIDTH 14.1 % (11.5-14.5); WHITE BLOOD COUNT 7.8 10^3/ul (4.5-11.0)
--- NOTE | 2017-02-17 09:40 | PN ---
DATE: 02/17/2017 SUBJECTIVE: The patient appears comfortable this morning. He is not short of breath at rest. OBJECTIVE VITAL SIGNS: Temperature is 97.6, pulse is 60, respirations 18, blood pressure 111/51. Oxygen saturation on nasal cannula is 94%. HEAD, EARS, EYES, NOSE, AND THROAT: Normocephalic, atraumatic. No JVD. CARDIOVASCULAR: Systolic ejection murmur at the lower left sternal border. Positive S3 gallop. LUNGS: Less crackles at the bases. Minimal/less rhonchi. No wheezing. EXTREMITIES: Mild edema. No cyanosis. No clubbing. Calves are nontender to palpation. GASTROINTESTINAL: Abdomen is soft, nontender, and nondistended. Bowel sounds are positive. SKIN: No acute rash. NEUROLOGIC: Limited at the present time. IMPRESSION 1. Recurrent congestive heart failure. 2. Chest discomfort - rule out cardiac ischemia. 3. Coronary artery disease, abnormal cardiac catheterization. 4. Chronic obstructive pulmonary disease. 5. Mild bronchitis. 6. Permanent pacemaker. PLAN: The patient appears very comfortable this morning. He is not short of breath at rest. He does have a relative at bedside. I did discuss the case with her at length. On physical exam, there is certainly less bronchospasm noted. In addition, there is less alveolar-arterial gradient. I will continue with the current nebulizer treatments and inhaled steroids for now. The patient remains off antibiotic therapy. There are no temperatures noted. There is no leukocytosis. I would continue with the treatment for congestive heart failure and coronary artery disease, as per cardiology. Input by Dr. Harrison is noted. Clinical status of the patient is significantly improved - compared to the initial presentation. However, again, the overall status/ prognosis of this elderly patient - with multiple medical problems - does remain very guarded. I will discuss the above with the attending physician. Riley Fu MD cc: [id number] TT: 02/17/2017 09:39:46 Confirmation # [id number] Dictation # [id number] yonny PFEIFFER
--- NOTE | 2017-02-17 14:18 | PN ---
DATE: 02/17/2017 SUBJECTIVE: The patient denies any chest pain or shortness of breath. PHYSICAL EXAMINATION: VITAL SIGNS: Blood pressure 127/56, heart rate 60s, temperature 97.4, respirations 19. HEENT: Normocephalic. CHEST: Minimal rhonchi. HEART: S1, S2 regular. EXTREMITIES: Significant arm ecchymosis. LABORATORIES: Hemoglobin and hematocrit 13.2 and 40.7, white count and platelet count are within nor mal limits. Today's BUN and creatinine are 41 and 0.8. ASSESSMENT: 1. Coronary artery disease status post coronary artery bypass surgery. 2. Congestive heart failure which appears to be clinically compensated at this time. 3. Pulmonary hypertension. 4. Peripheral vascular disease. 5. Prerenal azotemia. RECOMMENDATIONS: Continue aspirin 81 mg once a day. Continue IV milrinone. Reduce Lasix to 20 mg i ntravenously daily. Lazarus Mai MD cc: [id number] TT: 02/17/2017 14:17:30 Confirmation # [id number] Dictation # [id number]
--- NOTE | 2017-02-17 21:46 | PN ---
DATE: 02/17/2017 SUBJECTIVE: The patient seen and examined at bedside on the telemetry gallardo. No acute events overnig ht. He remains afebrile and hemodynamically stable and with continued improvement in his respiratory status. This morning, he is sitting up comfortably in his chair and states he feels significant imp rovement since admission and offers no complaints. OBJECTIVE: VITAL SIGNS: Temperature 97.4, pulse 60, blood pressure 124/64, respiratory rate 19, oxygen saturati on 93% on room air. GENERAL: Elderly man appearing his stated age, in no apparent distress. HEENT: PERRL. EOMI. No scleral icterus. No conjunctival pallor. NECK: Supple with full range of motion, no JVD, no bruits. LUNGS: Bibasilar crackles with few scattered rhonchi. CARDIOVASCULAR: Regular rate and rhythm, normal S1, S2, grade II/ systolic ejection murmur at the left lower sternal border. ABDOMEN: Normoactive bowel sounds, soft, nontender, nondistended. EXTREMITIES: No edema. NEUROLOGIC: Awake, alert and oriented x 3. No focal motor deficits. LABORATORY DATA: CBC reviewed and unremarkable. Sodium 133, potassium 3.7, chloride 94, bicarb 34, BUN 41, creatinine 0.8, glucose 107. Blood cultures with no growth to date. ASSESSMENT: The patient is an 86-year-old male with past medical history of chronic obstructive pulm onary disease/emphysema, hypertension, and coronary artery disease, status post coronary artery bypas s graft, who presented to [facility] with a 1-week history of progressively worsening dys pnea, 2-pillow orthopnea, lower extremity edema and who was recently discharged for management of acu te systolic heart failure exacerbation, who returned similar symptoms and now who is status post card iac catheterization with no acute intervention performed and who is clinically improving on milrinone infusion. PLAN: 1. Acute systolic heart failure exacerbation. Input from Dr. Harrison of cardiology noted and greatly a ppreciated. Continue with Lasix 20 mg IV daily and milrinone infusion. 2. CAD status post CABG. Continue with care as per Dr. Harrison. Continue with aspirin 81 mg p.o. mehrdad y. 3. Hypertension. Blood pressure controlled. Continue with current medications. 4. COPD/emphysema. Input from Dr. Fu noted and appreciated. Continue with bronchodilators, in haled corticosteroids and supplemental oxygen as needed. 5. Prophylaxis. GI prophylaxis not indicated as patient is eating. DVT prophylaxis not indicated a s the patient is ambulatory. CODE STATUS: Full code. Shiva Angulo MD cc: [id number] TT: 02/17/2017 21:45:39 Confirmation # [id number] Dictation # [id number] mn
[2017-02-17] MEDS: Milrinone 20mg/100ml D5W 100 ML IV PRN (22:02)
[2017-02-18] MEDS: Levalbuterol 0.63 MG/3 ML Inhal Soln UD IH SCH ×4 (02:41→19:19)
[2017-02-18] MEDS: Pantoprazole 40 mg EC Tab PO SCH (05:44)
--- NOTE | 2017-02-18 07:58 | PN ---
DATE: 02/18/2017 The patient appears comfortable this morning. He is not short of breath at rest. PHYSICAL EXAMINATION: VITAL SIGNS: Temperature is 98.4, pulse 61, respirations 18/20, blood pressure 106/50. Oxygen saturation on nasal cannula is 94%. HEENT: Normocephalic, atraumatic. No JVD. CARDIOVASCULAR: Systolic ejection murmur at the lower left sternal border. Positive S3 gallop. LUNGS: Less crackles at the bases. Less rhonchi. No wheezing. EXTREMITIES: Less edema. No cyanosis, no clubbing. Calves are nontender to palpation. GASTROINTESTINAL: Abdomen is soft, nontender, nondistended. Bowel sounds are positive. SKIN: No acute rash. NEUROLOGIC: Limited at the present time. IMPRESSION: 1. Recurrent congestive heart failure. 2. Chest discomfort -- rule out cardiac ischemia. 3. Coronary artery disease, abnormal cardiac catheterization. 4. Chronic obstructive pulmonary disease. 5. Mild bronchitis. 6. Permanent pacemaker. PLAN: The patient appears very comfortable this morning. He is not short of breath at rest. I did speak with the son-in-law at length -- at bedside. The son-in-law agrees that the patient is doing very well overall, and his pulmonary symptoms are resolving. On physical exam, there is less bronchospasm noted. In addition, there is less alveolar-arterial gradient. I will continue with the current nebulizer treatments and inhaled steroids for now. Input by cardiology is noted. The patient remains on Lasix and a milrinone drip. His clinical status is certainly improved -- compared to the initial presentation. However, again, his overall status/prognosis does remain very guarded. I will discuss the above with Dr. Angulo. Riley Fu MD cc: [id number] TT: 02/18/2017 07:57:10 Confirmation # [id number] Dictation # [id number] en MTDD
[2017-02-18] MEDS: Budesonide 0.5 mg/2 ml Inhal Susp UD IH SCH ×2 (08:00→19:19)
[2017-02-18 08:13] LABS: ADD MANUAL DIFF? NO
[2017-02-18 08:16] LABS: BASO # 0.02 K/mm3 (0.0-2.0); BASO % 0.2 % (0.0-3.0); EOS # 0.1 (0.0-0.7); EOS % 0.6 % (1.5-5.0); GRAN # 5.05 (1.4-6.5); GRAN % 54.1 % (50.0-68.0); HEMATOCRIT 43.3 % (42.0-52.0); LYMPH % 31.7 % (22.0-35.0); MEAN CELL VOLUME 98.6 fL (80.0-105.0); MEAN CORPUSCULAR HGB CONC 33.5 g/dl (31.0-37.0); MEAN PLATELET VOLUME 9.2 fl (7.0-11.0); MONO # 1.3 (0.1-0.6); MONO % 13.4 % (1.0-6.0); PLATELET COUNT 350 10^3/uL (120.0-450.0); RED CELL DISTRIBUTION WIDTH 13.8 % (11.5-14.5); WHITE BLOOD COUNT 9.3 10^3/ul (4.5-11.0)
--- NOTE | 2017-02-18 08:22 | PN ---
DATE: 02/18/2017 SUBJECTIVE: The patient seen and examined at bedside in telemetry gallardo. No acute events overnight. He remains afebrile and hemodynamically stable. This morning, he states he feels well and with cont inued improvement in his respiratory status. His milrinone infusion has been discontinued and we huy l ambulate the patient today. Otherwise, he feels okay and offers no complaints. OBJECTIVE: VITAL SIGNS: Temperature 98.4, pulse 61, blood pressure 106/50, respiratory rate 20, oxygen saturati on 94% on room air. GENERAL: Elderly man appearing his stated age, sitting up comfortably in his chair in no apparent di stress. HEENT: PERRL, EOMI. No scleral icterus. No conjunctival pallor. NECK: No JVD. No bruits. LUNGS: Faint bibasilar crackles with a few scattered rhonchi. CARDIOVASCULAR: Regular rate and rhythm. Normal S1 and S2. Grade II/ systolic ejection murmur at the left lower sternal border. ABDOMEN: Normoactive bowel sounds, soft, nontender, nondistended. EXTREMITIES: No edema. NEUROLOGIC: Awake, alert and oriented x 3. No focal motor deficits. LABORATORY DATA: Morning labs are pending. ASSESSMENT: The patient is an 86-year-old man with past medical history of chronic obstructive pulmo nary disease/emphysema, hypertension and coronary artery disease status post coronary artery bypass g raft who presented to [facility] with 1-week history of progressively worsening dyspnea, two pillow orthopnea and lower extremity edema and who was admitted for management of acute systolic heart failure exacerbation, who is clinically improving. PLAN: 1. Acute systolic heart failure exacerbation, resolving. Input from Dr. Harrison, cardiology noted and appreciated. The patient remains on Lasix 20 mg IV daily and his milrinone infusion has been put on hold. 2. Coronary artery disease, status post coronary artery bypass graft. Continue with care as per Dr. Harrison, continue with aspirin 81 mg p.o. daily. 3. Hypertension. Blood pressure controlled. Continue with current medications. 4. Chronic obstructive pulmonary disease/emphysema. Input from Dr. Fu noted and appreciated. Continue with current therapy. 5. Prophylaxis. GI prophylaxis not indicated as patient is eating. DVT prophylaxis not indicated a s patient is ambulatory. CODE STATUS: Full code. Shiva Angulo MD cc: [id number] TT: 02/18/2017 08:21:59 Confirmation # [id number] Dictation # [id number] tn
[2017-02-18 08:34] LABS: ALKALINE PHOSPHATASE 153 U/L (38-133); ALT/SGPT 22 U/L (7-56); AST/SGOT 41 U/L (15-59); BILIRUBIN,TOTAL 1.8 mg/dL (0.2-1.3); BLOOD UREA NITROGEN 29 mg/dL (7-21); CALCIUM 8.5 mg/dL (8.4-10.5); CARBON DIOXIDE 33 mmol/L (21-33); CHLORIDE 92 mmol/L (95-110); GFR AFRICAN-AMERICAN > 60; GLUCOSE,RANDOM 111 mg/dL (70-110); SODIUM 132 mmol/L (132-148); TOTAL PROTEIN 7.1 g/dL (5.8-8.3)
[2017-02-18] MEDS: Enoxaparin 30 mg Syringe SC SCH (18:02)
--- NOTE | 2017-02-18 18:53 | CP.PCM.PN ---
Subjective - Date & Time of Evaluation Date of Evaluation: 02/18/17 Time of Evaluation: 09:00 - Subjective Subjective: Comfortable, afebrile, not in distress. Objective - Vital Signs/Intake and Output Vital Signs (last 24 hours): Temp Pulse Resp BP Pulse Ox 98.4 F 61 20 106/50 L 94 L 02/18/17 06:00 02/18/17 06:00 02/18/17 06:00 02/18/17 06:00 02/18/17 06:00 Intake and Output: 02/18/17 02/18/17 06:59 18:59 Intake Total 695 Balance 695 - Medications Medications: Current Medications Acetaminophen (Tylenol 325mg Tab) 650 mg PO Q6H PRN PRN Reason: Headache Last Admin: 02/16/17 17:40 Dose: 650 mg Aspirin (Ecotrin) 81 mg PO DAILY [facility] Last Admin: 02/15/17 09:45 Dose: 81 mg Budesonide (Pulmicort Respules) 0.5 mg IH [id number] [facility] Last Admin: 02/18/17 08:00 Dose: 0.5 mg Furosemide (Lasix) 20 mg IVP DAILY [facility] Milrinone Lactate/Dextrose (Primacor 20mg/100ml D5w) 100 mls @ 3.69 mls/hr IV .Q24H PRN; Protocol; 0.2 MCG/KG/MIN PRN Reason: TITRATE PER MD ORDER Last Admin: 02/17/17 22:02 Dose: 0.2 mcg/kg/min, 3.69 mls/hr Levalbuterol HCl (Xopenex) 0.63 mg IH [id number] [facility] Last Admin: 02/18/17 08:00 Dose: 0.63 mg Levalbuterol HCl (Xopenex) 0.63 mg IH Q2 PRN PRN Reason: Shortness of Breath Pantoprazole Sodium (Protonix Ec Tab) 40 mg PO 0600 [facility] Last Admin: 02/18/17 05:44 Dose: 40 mg - Labs Labs: 02/18/17 07:50 02/18/17 07:50 PT 11.9 Seconds (9.9-11.8) H 02/16/17 00:45 INR 1.10 (0.93-1.08) H 02/16/17 00:45 APTT 28.6 Seconds (23.7-30.8) 02/16/17 00:45 - Constitutional Appears: Non-toxic, No Acute Distress - Head Exam Head Exam: NORMAL INSPECTION - Neck Exam Neck Exam: absent: Meningismus - Respiratory Exam Respiratory Exam: Decreased Breath Sounds - Cardiovascular Exam Cardiovascular Exam: +S1, +S2 - GI/Abdominal Exam GI & Abdominal Exam: Soft. absent: Tenderness Assessment and Plan - Assessment and Plan (Free Text) Plan: Assessment Probable CHF exacerbation, unlikely pneumonia, clinically improving CAD S/P CABG chronic CHF S/P pacemaker placement COPD Plan continue to monitor off antibiotics since he is at risk for hospital-acquired infections
[2017-02-19] MEDS: Levalbuterol 0.63 MG/3 ML Inhal Soln UD IH SCH ×2 (02:28→07:48)
[2017-02-19] MEDS: Pantoprazole 40 mg EC Tab PO SCH (05:46)
[2017-02-19 07:05] LABS: ADD MANUAL DIFF? NO
[2017-02-19 07:13] VITALS: TEMP 97.5
[2017-02-19 07:14] LABS: BASO # 0.03 K/mm3 (0.0-2.0); BASO % 0.3 % (0.0-3.0); EOS # 0.1 (0.0-0.7); EOS % 0.6 % (1.5-5.0); GRAN # 6.35 (1.4-6.5); GRAN % 55.3 % (50.0-68.0); HEMATOCRIT 41.6 % (42.0-52.0); LYMPH # 3.5 (1.2-3.4); LYMPH % 30.7 % (22.0-35.0); MEAN CORPUSCULAR HEMOGLOBIN 33.3 pg (25.0-35.0); MEAN CORPUSCULAR HGB CONC 33.7 g/dl (31.0-37.0); MEAN PLATELET VOLUME 9.2 fl (7.0-11.0); MONO # 1.5 (0.1-0.6); MONO % 13.1 % (1.0-6.0); PLATELET COUNT 382 10^3/uL (120.0-450.0); WHITE BLOOD COUNT 11.5 10^3/ul (4.5-11.0)
[2017-02-19 07:22] LABS: ALKALINE PHOSPHATASE 141 U/L (38-133); ALT/SGPT 27 U/L (7-56); AST/SGOT 39 U/L (15-59); BILIRUBIN,TOTAL 1.2 mg/dL (0.2-1.3); BLOOD UREA NITROGEN 24 mg/dL (7-21); CALCIUM 8.2 mg/dL (8.4-10.5); CARBON DIOXIDE 33 mmol/L (21-33); CHLORIDE 92 mmol/L (95-110); GFR AFRICAN-AMERICAN > 60; GLUCOSE,RANDOM 105 mg/dL (70-110); MAGNESIUM 2.2 mg/dL (1.7-2.2); PHOSPHOROUS 2.8 mg/dL (2.5-4.5); POTASSIUM 4.2 mmol/L (3.6-5.0); SODIUM 132 mmol/L (132-148); TOTAL PROTEIN 6.5 g/dL (5.8-8.3)
[2017-02-19] MEDS: Budesonide 0.5 mg/2 ml Inhal Susp UD IH SCH (07:48)
--- NOTE | 2017-02-19 08:41 | PN ---
DATE: 02/18/2017 REASON FOR CONSULTATION AND FOLLOWUP: Decompensated congestive heart failure. BRIEF CLINICAL HISTORY: An 86-year-old male with past medical history significant for coronary arter y disease, CABG 08/2008. After being discharged, the patient readmitted again, and underwent right h eart catheterization. Left heart catheterization attempted, unable to do because of poor arterial ac cess bilateral common iliac artery stenosis. The patient started on IV Primacor. The patient signif icantly improved. Denies any chest pain, shortness of breath, any palpitation. PHYSICAL EXAMINATION: VITAL SIGNS: Temperature afebrile, heart rate 60, blood pressure 106/5____. HEENT: PERRLA. Extraocular muscles intact. NECK: Supple. No carotid bruits. No thyromegaly. CHEST: Clear to auscultation. HEART: S1, S2 regular. ABDOMEN: Soft. EXTREMITIES: Clubbing and cyanosis negative. LABORATORY DATA: Blood workup as follows: WBC 9.____, hemoglobin 14____, hematocrit 43.3, platelet count 350. Chemistry shows sodium 13____, potassium 4, chloride, ____, anion gap of 11, BUN ____, cr eatinine 0.8. IMPRESSION: Pulmonary hypertension, peripheral arterial disease, coronary artery bypass graft, cardi omyopathy. Recent echo shows ejection fraction 30-35%, peripheral arterial disease severe, 3-vessel coronary artery bypass graft 08/2008, left internal mammary artery to left anterior descending, saphe nous vein graft to right coronary artery, saphenous graft to obtuse marginal-1. Prerenal azotemia, d ecompensated congestive heart failure improved, now with compensated systolic dysfunction. RECOMMENDATIONS: We will discontinue Primacor. Lasix changed to p.o. from tomorrow, ambulate. Poss ible discharge in a day or 2. We will put DVT prophylaxis. Discussed with the son-in-law. We will follow with you. Thank you, Dr. Angulo, for providing the opportunity in taking care of the patient. We will resum e back on low-dose beta-liliane, aspirin, and p.o. Lasix. Vasu Harrison MD cc: [id number] TT: 02/18/2017 11:21:17 Confirmation # [id number] Dictation # [id number] jn
--- NOTE | 2017-02-19 09:29 | PN ---
DATE: 02/19/2017 SUBJECTIVE: The patient is seen and examined at bedside on the telemetry gallardo. No acute events over night. He remains afebrile and hemodynamically stable, and this morning, he states he feels at his b aseline respiratory status. He overall feels significant improvement since admission and states he i s ready to go home. OBJECTIVE: VITAL SIGNS: Temperature 97.5, pulse 65, blood pressure 165/71, respiratory rate 20, oxygen saturati on 96% on 2 liters nasal cannula. GENERAL: No apparent distress. HEENT: PERRL. EOMI. No scleral icterus. No conjunctival pallor. NECK: No JVD, no bruits. LUNGS: Faint bibasilar crackles with minimal scattered rhonchi. CARDIOVASCULAR: Regular rate and rhythm, normal S1, S2, grade II/ systolic ejection murmur at the left lower sternal border. ABDOMEN: Normoactive bowel sounds, soft, nontender, nondistended. EXTREMITIES: No edema. NEUROLOGIC: Awake, alert, and oriented x 3. No focal motor deficits. LABORATORY DATA: WBC 11.5 with 55% neutrophils, hemoglobin 14, hematocrit 41, platelets 382. Sodium 132, potassium 4.2, chloride 92, bicarb 33, BUN 24, creatinine 0.8, glucose 105. ASSESSMENT: The patient is an 86-year-old man with past medical history of chronic obstructive pulmo nary disease/emphysema, hypertension and coronary artery disease status post coronary artery bypass g raft, who presented to [facility] with 1-week history of progressively worsening dyspnea, 2-pillow orthopnea, and lower extremity edema, and who is admitted for management of acute systolic heart failure exacerbation. PLAN: 1. Acute systolic heart failure exacerbation, resolved. Input from Dr. Harrison noted and greatly appre ciated. The patient is status post milrinone infusion and aggressive diuresis with intravenous Lasix . 2. Coronary artery disease, status post coronary artery bypass graft. Input from Dr. Harrison again not ed and greatly appreciated. Continue with aspirin 81 mg p.o. daily, Lopressor 12.5 mg p.o. b.i.d., a nd Lasix 40 mg p.o. daily. 3. Hypertension. Blood pressure controlled. Continue with current medications. 4. Chronic obstructive pulmonary disease/emphysema. Input from Dr. Fu noted and appreciated. Continue with current therapy. 5. Prophylaxis. GI prophylaxis is not indicated, as the patient is eating. DVT prophylaxis is not indicated, as the patient is ambulatory. 6. Disposition: The patient is for discharge to home today. CODE STATUS: Full code. Shiva Angulo MD cc: [id number] TT: 02/19/2017 09:29:12 Confirmation # [id number] Dictation # [id number] jn
--- NOTE | 2017-02-19 09:43 | PN ---
DATE: 02/19/2017 The patient appears very comfortable this morning. He is not short of breath at rest. OBJECTIVE: VITAL SIGNS: Temperature is 97.5, pulse on the monitor is 68, respiratory rate 18, blood pressure 165/71. Oxygen saturation on nasal cannula is 96%. HEENT: Normocephalic, atraumatic. No JVD. CARDIOVASCULAR: Systolic ejection murmur at the lower left sternal border. No S3 gallop. LUNGS: Very minimal/less crackles at the bases. No rhonchi or wheezing this morning. EXTREMITIES: Less edema. No cyanosis, no clubbing. Calves are nontender to palpation. GASTROINTESTINAL: Abdomen is soft, nontender, nondistended. Bowel sounds are positive. SKIN: No acute rash. NEUROLOGIC: Limited at the present time. IMPRESSION: 1. Recurrent congestive heart failure. 2. Chest discomfort - rule out cardiac ischemia. 3. Coronary artery disease, abnormal cardiac catheterization. 4. Chronic obstructive pulmonary disease. 5. Mild bronchitis. 6. Permanent pacemaker. PLAN: The patient appears very comfortable this morning. He is not short of breath at rest. I did speak with the son-in-law at length - at bedside. The son-in-law agrees that the patient is doing very well overall. On physical exam , his bronchospasm continues to resolve. In addition, the aveolar arterial gradient also continues to resolve. Oxygen saturation on nasal cannula is now 96%. I will continue with the current nebulizer treatments for now. I would continue with the treatment for congestive heart failure and coronary artery disease, as per cardiology. Inputs are noted. Clinical status of the patient is significantly improved - compared to the initial presentation. I will discuss the above with Dr. Angulo. Riley Fu MD cc: [id number] TT: 02/19/2017 09:42:48 Confirmation # [id number] Dictation # [id number] kimani PFEIFFER
[2017-02-19] MEDS: Enoxaparin 30 mg Syringe SC SCH (10:58)
[2017-02-19 10:59] VITALS: BP 135/56; PULSE 68
--- NOTE | 2017-02-19 11:29 | PN ---
DATE: 02/19/2017 REASON FOR CONSULTATION AND FOLLOWUP: Decompensated congestive heart failure, acute on chronic systo lic dysfunction. BRIEF CLINICAL HISTORY: This is an 86-year-old male with past medical history significant for rivera ry artery disease, CABG 2007, 3 bypass graft, after being recently discharged, admitted again with de compensated congestive heart failure. The patient underwent right heart catheterization, unable to d o the right heart catheterization from groin because of high-grade stenosis in both common iliac, his tory of known PAD. The patient started on IV Primacor for pulmonary hypertension and aggressively di uresed. Now, the patient is stable. Family wanted to discharge to take home. PHYSICAL EXAMINATION: VITAL SIGNS: Temperature afebrile, heart rate 86, blood pressure 113/61. HEENT: PERRLA. Extraocular muscles intact. NECK: Supple. No carotid bruits. No thyromegaly. CHEST: Clear to auscultation. HEART: S1, S2 regular. ABDOMEN: Soft. EXTREMITIES: Clubbing and cyanosis negative. LABORATORY DATA: Blood workup as follows: WBC 11.5, hemoglobin 14.0, hematocrit 41.6, platelet coun t is 382. Chemistry shows sodium 130, potassium 4.2, chloride 92, carbon dioxide 33, anion gap of 11 , BUN 24, creatinine 0.8. Total protein 6.5, albumin 3.2, albumin/globulin ratio 1. IMPRESSION: Decompensated congestive heart failure, acute on chronic systolic dysfunction, severe pe ripheral arterial disease, coronary artery disease, cardiomyopathy. Last echo shows ejection fractio n 30-35%, peripheral arterial disease, 3-vessel disease, status post coronary artery bypass graft 2007, left internal mammary to left anterior descending, saphenous vein graft to right coronary arter y, saphenous vein graft to obtuse marginal 1 in 08/2008. Prerenal azotemia, decompensated congestive heart failure, improved on Primacor. High-grade bilateral common iliac disease, history of known pe ripheral arterial disease. RECOMMENDATION: Primacor was discontinued. Continue gentle diuretics, Lopressor 12.5 mg twice a day . Continue treatment for COPD. Continue aspirin. Possible discharge today. Follow up in office in 2 weeks. We will follow with you. Will discuss with Dr. Shiva Angulo. Thank you, Dr. Angulo, for providing us the opportunity in taking care of the patient. Vasu Harrison MD cc: [id number] TT: 02/19/2017 11:28:11 Confirmation # [id number] Dictation # [id number] tn
[2017-02-19 12:01] VITALS: RESP 18; O2SAT 90
== END 2017-02-19 12:09 | disposition home or self-care (01) | DRG 287 ==
LOC: ED 20:55 → ERH 23:27 → 2RSO 02-15 02:19
PROVIDERS: ADMIT Student in an Organized Health Care Education/Training Program; ATTEND Student in an Organized Health Care Education/Training Program
PROC: 4A023N6 Measurement of Cardiac Sampling and Pressure, Right Heart, Percutaneous Approach (ICD-10-PCS; principal; 2017-02-15)
PROC: 3E0F7GC Introduction of Other Therapeutic Substance into Respiratory Tract, Via Natural or Artificial Opening (ICD-10-PCS; 2017-02-15)
DX: I11.0 Hypertensive heart disease with heart failure (principal); I50.23 Acute on chronic systolic (congestive) heart failure; J44.1 Chronic obstructive pulmonary disease with (acute) exacerbation; I42.9 Cardiomyopathy, unspecified; I27.2 Other secondary pulmonary hypertension; I25.10 Atherosclerotic heart disease of native coronary artery without angina pectoris; I70.8 Atherosclerosis of other arteries; I73.9 Peripheral vascular disease, unspecified; I08.2 Rheumatic disorders of both aortic and tricuspid valves; Z87.891 Personal history of nicotine dependence; Z95.1 Presence of aortocoronary bypass graft; Z95.0 Presence of cardiac pacemaker; Z85.828 Personal history of other malignant neoplasm of skin; Z79.51 Long term (current) use of inhaled steroids; Z79.82 Long term (current) use of aspirin